=== PATIENT | male | born 1985 | race Caucasian/White ===

== ENCOUNTER 2016-12-08 09:32 | Emergency (ER) | payer OTHER ==
[~2016-12-08] VITALS: Ht 170.2 cm; Wt 73.6 kg
[~2016-12-08 09:32] MED LIST: CLOTCRE33 TOP; DIPH25CA65 PO; FLUT0.0533 TOP; LORA-741 PO; METH4PAK4 PO; OMEP40CA PO
[2016-12-08 09:35] VITALS: TEMP 37; Ht 170.2 cm; Wt 73.6 kg
[2016-12-08] MEDS ORDERED: ONDANSETRON INJ 2 MG/ML 2 ML VIAL IV STA (09:46)
[2016-12-08] MEDS ORDERED: ALBUT/IPRATROP 3MG/0.5MG NEB 3 ML VIAL INH STA (09:46)
[2016-12-08] MEDS ORDERED: SODIUM CHLORIDE 0.9% 1000ML 1,000 ML IV STA (09:46)
--- NOTE | 2016-12-08 09:53 | EMERGENCY ROOM VISIT NOTE ---
History First contact with patient: 09:39 Chief Complaint: CONGESTION Stated Complaint: HEAD, CHEST Nursing Triage Summary: head and chest congestion went through zpak and prednisone has not helped sx. last night sx worsened. non productive cough History of Present Illness The patient is a 31 year old male who presents to the Emergency Room with complaints of upper respiratory symptoms. The patient has had respiratory symptoms for the last 1 week. He has had sinus congestion, cough, chest congestion, nausea, vomiting and diarrhea. The patient states that his entire family has had similar symptoms and have all been diagnosed with influenza with a positive influenza swab. The patient saw his family doctor one week ago and was started on a Z-Bhavesh and prednisone and that has not helped his symptoms. He states he has had fevers. He states he feels tightness in his chest. He denies any abdominal pain. Review of Systems A 10 system review of systems was completed with positives and pertinent negatives listed in the HPI. Past Medical/Surgical History Medical Problems: (1) Acid reflux (2) Back surgery (3) Head injury (4) Neck surgery Social History Smoking Status: Never Smoker Alcohol Use: none Drug Use: none Marital Status: single, Housing Status: lives with family Occupation Status: employed, unemployed Current/Historical Medications Scheduled Lorazepam (Ativan), 0.5 MG PO BID Methylprednisolone (Medrol Dosepak), 1 PKT PO UD Omeprazole (Prilosec), 40 MG PO BID Ranitidine (Zantac), 150 MG PO DAILY Allergies Coded Allergies: Ketorolac Tromethamine (Unverified Allergy, Severe, anaphylaxis, 12/08/16) BEE STING (Unverified Allergy, Intermediate, SHORTNESS OF BREATH, 12/08/16) Codeine (Unverified Allergy, Unknown, 12/08/16) Latex (Unverified Allergy, Unknown, hives, bumps on hands and arms , ) Levofloxacin (Unverified Allergy, Unknown, unknown, 12/08/16) Penicillins (Unverified Allergy, Unknown, 12/08/16) Sulfa Drugs (Unverified Allergy, Unknown, 12/08/16) Physical Exam Vital Signs Date Time Temp Pulse Resp B/P Pulse Ox O2 Delivery O2 Flow Rate FiO2 12/08/16 12:01 90 18 134/66 97 12/08/16 09:35 37.0 103 18 132/78 96 Room Air Physical Exam VITALS: Vitals are noted on the nurse's note and reviewed by myself. Vital signs stable. The patient is afebrile. GENERAL: This is a 31-year-old male, in no acute distress, nondiaphoretic, well- developed well-nourished. SKIN: The skin was without rashes, erythema, edema, or bruising. There is no tenting of the skin. Capillary reflex less than 2 seconds. HEAD: Normocephalic atraumatic. EARS: External auditory canals clear, tympanic membranes pearly patel without erythema or effusion bilaterally. EYES: Pupils equal round and reactive to light and accommodation. Conjunctivae without injection, sclerae without icterus. Extraocular movements intact. NOSE: Patent, turbinates without inflammation or discharge. MOUTH: Mucous membranes moist. The posterior pharynx is erythematous. There is no exudate. Tongue does not deviate. NECK: Supple without nuchal rigidity. No lymphadenopathy. No thyromegaly. Cervical spine is nontender. No JVD. HEART: Regular rate and rhythm without murmurs gallops or rubs. LUNGS: Clear to auscultation bilaterally without wheezes, rales or rhonchi. No retractions or accessory muscle use. ABDOMEN: Positive bowel sounds x 4. Soft, nontender, without masses or organomegaly. MUSCULOSKELETAL: No muscle atrophy, erythema, or edema noted. Full range of motion in all extremities. Normal gait. Strength 5/5 throughout. NEURO: Patient was alert and oriented to person place and time. No focal neurological deficits. Medical Decision & Procedures ER Provider Diagnostic Interpretation: CHEST 2 VIEWS ROUTINE CLINICAL HISTORY: cough, fever dyspnea COMPARISON STUDY: 01/20/2016 FINDINGS: The bones soft tissues and hemidiaphragms are normal. The cardiomediastinal silhouette is normal. The lungs are clear. The pulmonary vasculature is normal. IMPRESSION: Negative chest. Laboratory Results 12/08/16 10:00 Red Blood Count 4.90, Mean Corpuscular Volume 89.8, Mean Corpuscular Hemoglobin 33.7, Mean Corpuscular Hemoglobin Concent 37.5, Mean Platelet Volume 11.4, Neutrophils (%) (Auto) 77.1, Lymphocytes (%) (Auto) 12.4, Monocytes (%) (Auto) 9.0, Eosinophils (%) (Auto) 0.6, Basophils (%) (Auto) 0.1, Neutrophils # (Auto) 7.54, Lymphocytes # (Auto) 1.21, Monocytes # (Auto) 0.88, Eosinophils # (Auto) 0.06, Basophils # (Auto) 0.01 12/08/16 10:00 Test 12/08/16 09:55 12/08/16 10:00 12/08/16 10:36 Influenza Type A Antigen Neg for Influ A (NEG) Influenza Type B Antigen Neg for Influ B (NEG) White Blood Count 9.78 K/uL (4.8-10.8) Red Blood Count 4.90 M/uL (4.7-6.1) Hemoglobin 16.5 g/dL (14.0-18.0) Hematocrit 44.0 % (42-52) Mean Corpuscular Volume 89.8 fL (80-100) Mean Corpuscular Hemoglobin 33.7 pg (25-34) Mean Corpuscular Hemoglobin Concent 37.5 g/dl (32-36) Platelet Count 151 K/uL (130-400) Mean Platelet Volume 11.4 fL (7.4-10.4) Neutrophils (%) (Auto) 77.1 % Lymphocytes (%) (Auto) 12.4 % Monocytes (%) (Auto) 9.0 % Eosinophils (%) (Auto) 0.6 % Basophils (%) (Auto) 0.1 % Neutrophils # (Auto) 7.54 K/uL (1.4-6.5) Lymphocytes # (Auto) 1.21 K/uL (1.2-3.4) Monocytes # (Auto) 0.88 K/uL (0.11-0.59) Eosinophils # (Auto) 0.06 K/uL (0-0.5) Basophils # (Auto) 0.01 K/uL (0-0.2) RDW Standard Deviation 39.3 fL (36.4-46.3) RDW Coefficient of Variation 12.2 % (11.5-14.5) Immature Granulocyte % (Auto) 0.8 % Immature Granulocyte # (Auto) 0.08 K/uL (0.00-0.02) Anion Gap 10.0 mmol/L (3-11) Est Creatinine Clear Calc Drug Dose 92.7 ml/min Estimated GFR () 104.6 Estimated GFR (Non- 90.2 BUN/Creatinine Ratio 8.1 (10-20) Calcium Level 8.4 mg/dl (8.5-10.1) Total Bilirubin 0.7 mg/dl (0.2-1) Aspartate Amino Transf (AST/SGOT) 9 U/L (15-37) Alanine Aminotransferase (ALT/SGPT) 24 U/L (12-78) Alkaline Phosphatase 57 U/L (45-117) Total Protein 6.6 gm/dl (6.4-8.2) Albumin 3.8 gm/dl (3.4-5.0) Globulin 2.8 gm/dl (2.5-4.0) Albumin/Globulin Ratio 1.4 (0.9-2) Lipase 104 U/L (73-393) Urine Color YELLOW Urine Appearance CLEAR (CLEAR) Urine pH 7.0 (4.5-7.5) Urine Specific [place] 1.003 (1.000-1.030) Urine Protein NEG (NEG) Urine Glucose (UA) NEG (NEG) Urine Ketones NEG (NEG) Urine Occult Blood NEG (NEG) Urine Nitrite NEG (NEG) Urine Bilirubin NEG (NEG) Urine Urobilinogen NEG (NEG) Urine Leukocyte Esterase NEG (NEG) Medications Administered Medications (Trade) Dose Ordered Sig/Luis Route Start Time Stop Time Status Last Admin Dose Admin Albuterol/ Ipratropium 3 ml 3 ml NOW STAT INH 12/08/16 09:46 12/08/16 09:48 DC 12/08/16 10:01 3 ML Sodium Chloride (Nss 1000ml) 1,000 ml @ 999 mls/hr Q1H1M STAT IV 12/08/16 09:46 12/08/16 10:46 DC 12/08/16 10:01 999 MLS/HR Albuterol (Ventolin Hfa Inhaler) 2 puffs Q4R STAT INH 12/08/16 11:40 12/08/16 11:41 DC 12/08/16 11:57 2 PUFFS ED Course The patient was seen and examined. Previous visits were reviewed. The patient is afebrile. He does not have a leukocytosis. He does not have any significant electrolyte abnormality. Chest x-ray was negative for infiltrate Influenza was negative The patient was given a DuoNeb. He did feel slightly jittery after the treatment but that completely resolved He was hydrated with normal saline He was given albuterol inhaler prior to discharge The patient presents with upper respiratory symptoms. His symptoms are certainly characteristic of influenza. Additionally, his entire family has tested positive for influenza. Although the rapid influenza test is negative it may represent a false negative. There is no evidence for infiltrate. The patient has already been on Zithromax which has not improved his symptoms making this even more likely to be viral in nature. The patient does not have any shortness of breath and no pain with deep inspiration. The patient does have a history of reflux and has had a sensation in his throat of irritation but no pain with swallowing. The prednisone may be causing some GI upset. The patient should try Zantac in addition to his Prilosec. He is also given a prescription for Medrol Dosepak. He was given an albuterol inhaler to use at home as needed. He should return to the ER with any worsening symptoms. Otherwise, he should follow-up with his family doctor at the end of the week. The case was discussed with Dr. Ledbetter who agrees with the assessment and treatment planer Medical Decision DIFFERENTIAL DIAGNOSIS: Aortic dissection, myocarditis, pericarditis, cervical disc disease, costochondritis, herpes zoster, rib fracture, pleuritis, pneumonia , pulmonary embolus, tension pneumothorax, anxiety disorder, somatoform disorder , choledocholithiasis, status, esophagitis, esophageal spasm, esophageal reflux , esophageal rupture, pancreatitis, peptic ulcer disease, cardiac ischemia, ST elevation [place], acute coronary syndrome, arrhythmia, coronary artery vasospasm. vavular heart disease, coronary artery disease, among others. Impression Primary Impression: Viral upper respiratory illness Additional Impression: Influenza-like illness Departure Information Dispostion Home / Self-Care Condition GOOD Prescriptions Ranitidine (Zantac) 150 Mg Tab 150 MG PO DAILY for 10 Days, #10 TAB Prov: Tanesha Garcia PA-C 12/08/16 Methylprednisolone (MEDROL DOSEPAK) 4 Mg Bhavesh 1 PKT PO UD, #1 PKT Prov: Tanesha Garcia PA-C 12/08/16 Referrals Vicente Tanner M.D. (PCP) Patient Instructions ED Bronchitis Viral, [facility] Additional Instructions Albuterol inhaler 1-2 puffs every 4-6 hours as needed for congestion Medrol Dosepak as prescribed Zantac as prescribed in addition to the Prilosec Return to the ER with any shortness of breath, pain with deep inspiration, generalized worsening symptoms Otherwise, follow up with your family doctor next week Work Instructions Return To Work: 2 days Problem Qualifiers
[2016-12-08 10:15] LABS: BASO % 0.1 %; BASO ABS # 0.01 K/uL (0-0.2); COMPLETE YES; EOS % 0.6 %; IG% 0.8 %; LYMPH % 12.4 %; LYMPH ABS # 1.21 K/uL (1.2-3.4); MEAN CELL VOLUME 89.8 fL (80-100); MEAN CORPUSCULAR HEMOGLOBIN 33.7 pg (25-34); MEAN CORPUSCULAR HGB CONC 37.5 g/dl (32-36); MEAN PLATELET VOLUME 11.4 fL (7.4-10.4); NEUT % 77.1 %; PLATELET COUNT 151 K/uL (130-400); WHITE BLOOD COUNT 9.78 K/uL (4.8-10.8)
--- NOTE | 2016-12-08 10:32 | DIAGNOSTIC IMAGING REPORT ---
CHEST 2 VIEWS ROUTINE CLINICAL HISTORY: cough, fever dyspnea COMPARISON STUDY: 01/20/2016 FINDINGS: The bones soft tissues and hemidiaphragms are normal. The cardiomediastinal silhouette is normal. The lungs are clear. The pulmonary vasculature is normal. IMPRESSION: Negative chest. Electronically signed by: Medhat Khan M.D. 12/08/2016 10:30 AM Dictated Date/Time: 12/08/2016 10:30 AM
[2016-12-08 10:33] LABS: BUN/CREATININE RATIO 8.1 (10-20); CALCIUM 8.4 mg/dl (8.5-10.1); CREATININE 1.1 mg/dl (0.60-1.40); POTASSIUM 3.1 mmol/L (3.5-5.1)
[2016-12-08 10:36] LABS: ALB/GLOB RATIO 1.4 (0.9-2)
[2016-12-08 10:53] LABS: URINE APPEARANCE CLEAR (CLEAR); URINE BILIRUBIN NEG (NEG); URINE COLOR YELLOW; URINE NITRITE NEG (NEG); URINE SPECIFIC GRAVITY 1.003 (1.000-1.030); UROBILINOGEN NEG (NEG); ZZUR CULT IF INDIC CLEAN CATCH NO
[2016-12-08 10:56] LABS: MANUAL MICROSCOPIC REQUIRED? NO; REVIEW REQ? NO
[2016-12-08] MEDS ORDERED: ALBUTEROL HFA 8 GM INHALER INH STA (11:40)
[2016-12-08] MEDS ORDERED: METH4PAK PO (11:42)
[2016-12-08] MEDS ORDERED: ZNTT/150 PO (11:42)
[2016-12-08 12:01] VITALS: BP 134/66; PULSE 90; O2SAT 97
[2017-06-02] MEDS ORDERED: OMEP40CA41 PO (09:48)
[2017-06-09] MEDS ORDERED: OXYC-57 PO (18:17)
== END 2016-12-08 12:00 | disposition home or self-care (01) ==
LOC: C.EDB 09:33
DX: J06.9 Acute upper respiratory infection, unspecified (principal)

== ENCOUNTER 2016-12-18 09:50 | Emergency (ER) | payer OTHER ==
[~2016-12-18] VITALS: Ht 172.7 cm; Wt 73.3 kg
[~2016-12-18 09:50] MED LIST changes: -CLOTCRE33 TOP; -DIPH25CA65 PO; -FLUT0.0533 TOP; +METH4PAK PO; -METH4PAK4 PO; -OMEP40CA PO; +ZNTT/150 PO
[2016-12-18 09:53] VITALS: Ht 172.7 cm; Wt 73.3 kg
--- NOTE | 2016-12-18 10:40 | DIAGNOSTIC IMAGING REPORT ---
TWO VIEW CHEST CLINICAL HISTORY: Cough. FINDINGS: PA and lateral chest radiographs are compared to study dated 12/08/2016. The cardiomediastinal silhouette is unremarkable. The lungs appear hyperinflated, likely due to good inspiratory result. The lungs and pleural spaces are clear. There is no pneumothorax. The bony thorax appears intact. IMPRESSION: No active disease in the chest. Electronically signed by: Tee Shine M.D. 12/18/2016 10:39 AM Dictated Date/Time: 12/18/2016 10:39 AM
--- NOTE | 2016-12-18 11:03 | EMERGENCY ROOM VISIT NOTE ---
History Report prepared by Patricia: Glen Fishman Under the Supervision of: Dr. Laura Berumen M.D. First contact with patient: 10:20 Chief Complaint: RESPIRATORY PROBLEMS Stated Complaint: TROUBLE BREATHING Nursing Triage Summary: Pt states hurts to breathe, b/l rib pain, prod cough of yellow now clear with a small amt of blood. History of Present Illness The patient is a 31 year old male who presents to the Emergency Room with complaints of severe and persistent cough starting about 3 weeks ago. The patient also complains of intermittent bloody nose, blood in cough, and bilateral lower chest pain. He has worsening symptoms with lying down. He was recently diagnosed with bronchitis and flu. He has taken prednisone and used an inhaler without relief. The patient denies nausea, vomiting, abdominal pain, or any other complaints. Source of History: patient Onset: about 3 weeks ago Position: other (global) Symptom Intensity: severe Quality: other (cough) Timing: other (persistent) Modifying Factors (Relieving): other (Prednisone and inahler without relief) Associated Symptoms: + chest pain, No abdominal pain, No nausea, No vomiting Review of Systems See HPI for pertinent positives & negatives. A total of 10 systems reviewed and were otherwise negative. Past Medical & Surgical Medical Problems: (1) Acid reflux (2) Back surgery (3) Head injury (4) Neck surgery Family History FH: heart disease Social History Smoking Status: Never Smoker Alcohol Use: none Drug Use: none Marital Status: single, Housing Status: lives with family Occupation Status: employed, unemployed Current/Historical Medications Scheduled Lorazepam (Ativan), 0.5 MG PO BID Omeprazole (Prilosec), 40 MG PO BID Allergies Coded Allergies: Ketorolac Tromethamine (Unverified Allergy, Severe, anaphylaxis, 12/18/16) BEE STING (Unverified Allergy, Intermediate, SHORTNESS OF BREATH, 12/18/16) Codeine (Unverified Allergy, Unknown, 12/18/16) Latex (Unverified Allergy, Unknown, hives, bumps on hands and arms , ) Levofloxacin (Unverified Allergy, Unknown, unknown, 12/18/16) Penicillins (Unverified Allergy, Unknown, 12/18/16) Sulfa Drugs (Unverified Allergy, Unknown, 12/18/16) Physical Exam Vital Signs Date Time Temp Pulse Resp B/P Pulse Ox O2 Delivery O2 Flow Rate FiO2 12/18/16 12:54 36.9 90 18 127/70 96 12/18/16 10:50 90 18 127/70 96 Room Air 12/18/16 09:55 97 Room Air 12/18/16 09:53 36.9 90 18 142/90 98 Room Air Physical Exam CONSTITUTIONAL: Mild painful distress with deep breaths. HEENT: No icterus, moist mucous membranes NECK: No meningismus, trachea is midline. CARDIOVASCULAR: Regular rate, normal perfusion RESPIRATORY: Unlabored breathing. Clear to auscultation. GASTROINTESTINAL: Non-tender GENITOURINARY: No flank tenderness MUSCULOSKELETAL: Full range of motion NEUROLOGIC: No acute gross focal deficits. PSYCHIATRIC: Normal affect SKIN: Normal for ethnicity. Medical Decision & Procedures ER Provider Diagnostic Interpretation: X-ray results as stated below per interpretation by me and the radiologist. TWO VIEW CHEST CLINICAL HISTORY: Cough. FINDINGS: PA and lateral chest radiographs are compared to study dated 12/08/2016. The cardiomediastinal silhouette is unremarkable. The lungs appear hyperinflated, likely due to good inspiratory result. The lungs and pleural spaces are clear. There is no pneumothorax. The bony thorax appears intact. IMPRESSION: No active disease in the chest. Electronically signed by: Tee Shine M.D. 12/18/2016 10:39 AM Dictated Date/Time: 12/18/2016 10:39 AM ED Course 1020: Past medical records reviewed. The patient was evaluated in room A12B. A complete history and physical examination was performed. 1243: Upon reexamination the patient is resting comfortably. I discussed results and treatment plan with the patient. He verbalizes agreement and understanding. The patient is ready for discharge. Medical Decision Differential diagnosis includes but is not limited to bronchitis and pneumonia 31-year-old presented to the emergency department for evaluation of roughly 3 weeks of cough. He already has had an outpatient evaluation included x-rays which were negative. He notes he has bilateral pleuritic pain which she treats to coughing and is likely the etiology given the history. She declined both Tylenol and Motrin states she does not take medications for pain. He was encouraged to take both of these [id number] analgesics, however. Patient did wait patiently for several hours during a busy day in the emergency room. He requested work note which was provided. After discharge he requested the work note specify he cannot work outside. I declined to provide this note I did not have time to extremely my decision making given the context of the ER. Patient left frustrated and felt as if the cold weather would expose him to the risk of bacterial infection. Impression Primary Impression: Bronchitis Scribe Attestation The scribe's documentation has been prepared under my direction and personally reviewed by me in its entirety. I confirm that the note above accurately reflects all work, treatment, procedures, and medical decision making performed by me. Departure Information Dispostion Home / Self-Care Referrals No Doctor, Assigned (PCP) Forms HOME CARE DOCUMENTATION FORM, IMPORTANT VISIT INFORMATION, WORK / SCHOOL INSTRUCTIONS Patient Instructions Chest Pain - [facility], [facility]
[2016-12-18 12:54] VITALS: BP 127/70; PULSE 90; TEMP 36.9; O2SAT 96
[2017-06-02] MEDS ORDERED: OMEP40CA41 PO (09:48)
[2017-06-09] MEDS ORDERED: OXYC-57 PO (18:17)
== END 2016-12-18 12:56 | disposition home or self-care (01) ==
LOC: C.EDB 09:51 → C.EDA 12:56
DX: J40 Bronchitis, not specified as acute or chronic (principal); K21.9 Gastro-esophageal reflux disease without esophagitis; Z82.49 Family history of ischemic heart disease and other diseases of the circulatory system

== ENCOUNTER → 2017-02-25 | Outpatient (CLI) | payer OTHER ==
[~2017-02-25] MED LIST changes: +ATV5X PO; -METH4PAK PO; +OMEP40CA41 PO; +ONDA4TAB10 SL; +OXYC-57 PO; +OXYC1TAB3 PO; +TAMS0.4C38 PO; -ZNTT/150 PO
[2017-02-25 15:54] LABS: BASO % 0.2 %; BASO ABS # 0.01 K/uL (0-0.2); COMPLETE YES; EOS % 0.6 %; HEMATOCRIT 45.7 % (42-52); IG% 0.5 %; LYMPH % 14.9 %; LYMPH ABS # 0.95 K/uL (1.2-3.4); MEAN CORPUSCULAR HEMOGLOBIN 32.7 pg (25-34); MEAN CORPUSCULAR HGB CONC 35.9 g/dl (32-36); MEAN PLATELET VOLUME 11.6 fL (7.4-10.4); MONO % 6.9 %; NEUT % 76.9 %; PLATELET COUNT 181 K/uL (130-400); RED BLOOD COUNT 5.02 M/uL (4.7-6.1); WHITE BLOOD COUNT 6.37 K/uL (4.8-10.8)
[2017-02-25 16:35] LABS: ALT/SGPT 22 U/L (12-78); AST/SGOT 13 U/L (15-37); BLOOD UREA NITROGEN 15 mg/dl (7-18); BUN/CREATININE RATIO 13.2 (10-20); CARBON DIOXIDE 29 mmol/L (21-32); CHLORIDE 105 mmol/L (98-107); GLUCOSE 91 mg/dl (70-99); POTASSIUM 3.5 mmol/L (3.5-5.1); SODIUM 142 mmol/L (136-145)
[2017-02-25 16:41] LABS: CALCIUM 9.1 mg/dl (8.5-10.1)
[2017-02-25 17:08] LABS: ALB/GLOB RATIO 1.5 (0.9-2); ALKALINE PHOSPHATASE 52 U/L (45-117)
== END | disposition home or self-care (01) ==
LOC: C.LAB1850 15:00
PROVIDERS: ATTEND Internal Medicine Pulmonary Disease
DX: J30.9 Allergic rhinitis, unspecified (principal); L23.9 Allergic contact dermatitis, unspecified cause

== ENCOUNTER 2017-06-02 18:20 | Emergency (ER) | payer OTHER ==
[~2017-06-02] VITALS: Ht 170.2 cm; Wt 73.3 kg
[~2017-06-02 18:20] MED LIST changes: -ATV5X PO; -ONDA4TAB10 SL; -OXYC-57 PO; -OXYC1TAB3 PO; -TAMS0.4C38 PO
[2017-06-02 18:25] VITALS: TEMP 36.9; Ht 170.2 cm; Wt 73.3 kg
[2017-06-02] MEDS ORDERED: SODIUM CHLORIDE 0.9% 1000ML 1,000 ML IV STA (18:42)
--- NOTE | 2017-06-02 18:48 | EMERGENCY ROOM VISIT NOTE ---
History First contact with patient: 18:31 Chief Complaint: DIZZY Stated Complaint: DIZZY, FELL OUT DURING WORK History of Present Illness The patient is a 31 year old male who presents to the Emergency Room via private vehicle accompanied by father with complaints of "dizziness, almost passed out during work". The patient states that for the past 2 days, he has felt tired. He states that today he tried mowing the yard, and on his way to work felt very dizzy and as if he was going to pass out. He also notes pain in his bilateral knees, and low back as well as right shoulder for the past 2 weeks. He notes recent tick bites. He is also had generalized abdominal pain for the past 10 days but denies pain currently. He has had associated diarrhea. He notes that were he works, is very warm is concerned he may be dehydrated today. There was associated shortness of breath, of which has dissipated. He denies any chest pain. He denies any fevers or chills. He has discontinued Zyrtec, which he has been taking regularly as he has felt tired. Review of Systems A complete 10-point Review of Systems was discussed with the patient, with pertinent positives and negatives listed in the History of Present Illness. All remaining Review of Systems questions can be considered negative unless otherwise specified. Past Medical/Surgical History Medical Problems: (1) Acid reflux (2) Back surgery (3) Head injury (4) Neck surgery Family History FH: heart disease Social History Smoking Status: Never Smoker Alcohol Use: none Drug Use: none Marital Status: single, Housing Status: lives with family Occupation Status: employed, unemployed Current/Historical Medications Scheduled Lorazepam (Lorazepam), 0.5 MG PO BID Omeprazole (Prilosec), 40 MG PO BID Allergies Coded Allergies: Ketorolac Tromethamine (Unverified Allergy, Severe, anaphylaxis, 12/18/16) BEE STING (Unverified Allergy, Intermediate, SHORTNESS OF BREATH, 12/18/16) Codeine (Unverified Allergy, Unknown, 12/18/16) Latex (Unverified Allergy, Unknown, hives, bumps on hands and arms , ) Levofloxacin (Unverified Allergy, Unknown, unknown, 12/18/16) Penicillins (Unverified Allergy, Unknown, 12/18/16) Sulfa Drugs (Unverified Allergy, Unknown, 12/18/16) Physical Exam Vital Signs Date Time Temp Pulse Resp B/P (MAP) Pulse Ox O2 Delivery O2 Flow Rate FiO2 06/02/17 21:01 78 18 126/73 98 06/02/17 20:50 78 18 126/73 98 Room Air 06/02/17 19:23 86 06/02/17 19:13 70 124/81 72 136/82 82 126/81 06/02/17 19:11 Room Air 06/02/17 18:25 36.9 98 18 153/80 99 Room Air Physical Exam VITAL SIGNS - Vital signs and nursing notes were reviewed. Afebrile, hypertensive at 153/80, non-tachycardic and is saturating well on room air 99%. GENERAL -31-year-old male appearing his stated age who is in no acute distress. Communicates well with provider and answers questions appropriately. SKIN - faint bilateral anterior foot rash which is chronic. HEAD - NC/AT. EYES - PERRL with EOMI bilaterally. Sclera anicteric. Palpebral conjunctiva pink and moist with no injection noted. EARS - No deformities of external structures noted on gross examination bilaterally. No pain elicited with palpation of the tragus bilaterally. External auditory canals without discharge or otorrhea. Tympanic membranes pearly patel without retraction or bulging. No fluid or purulent material visualized behind the TM. Handle of malleus, umbo, cone of light, pars tensa/ flaccid all easily visualized. NOSE - Midline and without cyanosis. No epistaxis or purulent drainage noted. Septum midline without deviation or septal hematoma noted. MOUTH/OROPHARYNX - Without perioral cyanosis. Buccal mucosa pink and moist and without leukoplakia. Tongue midline with equal elevation of palate bilaterally. No tonsillar hypertrophy, erythema, or exudates noted. [] dentition noted. NECK - Neck with FROM. Supple to palpation. No lymphadenopathy noted. No nuchal rigidity. LUNGS - Chest wall symmetric without accessory muscle use, intercostals retractions, or central cyanosis. Normal vesicular breath sounds CTA B/L. No wheezes, rales, or rhonchi appreciated. CARDIAC - RRR with S1/S2. No murmur, rubs, or gallops appreciated. ABDOMEN - Abdominal contour without pulsations or visible masses. BS normoactive all four quadrants. No tenderness, palpable masses, hepatosplenomegaly, or ascites noted. EXTREMITIES - No clubbing or peripheral cyanosis. No pretibial edema present. +5 /5 strength noted in UE/LE bilaterally. NEUROLOGIC - Cranial nerves II through XII grossly intact. Sensory intact to light touch throughout. PSYCH - A&Ox3 and cooperates fully with examiner. Pt is very pleasant and interacts well with examiner. Medical Decision & Procedures ER Provider Diagnostic Interpretation: CHEST ONE VIEW PORTABLE CLINICAL HISTORY: 31 years-old Male presenting with dizziness, weakness. TECHNIQUE: Portable upright AP view of the chest was obtained. COMPARISON: 12/18/2016. FINDINGS: Cardiomediastinal silhouette normal. Lungs and pleural spaces clear. Osseous structures and upper abdomen normal. IMPRESSION: 1. No acute cardiopulmonary disease. Electronically signed by: Vicente Perkins M.D. 06/02/2017 7:16 PM Dictated Date/Time: 06/02/2017 7:16 PM Laboratory Results 06/02/17 19:00 Red Blood Count 5.11, Mean Corpuscular Volume 89.0, Mean Corpuscular Hemoglobin 33.5, Mean Corpuscular Hemoglobin Concent 37.6, Mean Platelet Volume 11.7, Neutrophils (%) (Auto) 73.9, Lymphocytes (%) (Auto) 17.2, Monocytes (%) (Auto) 6.7, Eosinophils (%) (Auto) 1.7, Basophils (%) (Auto) 0.3, Neutrophils # (Auto) 4.85, Lymphocytes # (Auto) 1.13, Monocytes # (Auto) 0.44, Eosinophils # (Auto) 0.11, Basophils # (Auto) 0.02 06/02/17 19:00 Test 06/02/17 19:00 06/02/17 19:10 06/02/17 19:23 White Blood Count 6.56 K/uL (4.8-10.8) Red Blood Count 5.11 M/uL (4.7-6.1) Hemoglobin 17.1 g/dL (14.0-18.0) Hematocrit 45.5 % (42-52) Mean Corpuscular Volume 89.0 fL (80-100) Mean Corpuscular Hemoglobin 33.5 pg (25-34) Mean Corpuscular Hemoglobin Concent 37.6 g/dl (32-36) Platelet Count 175 K/uL (130-400) Mean Platelet Volume 11.7 fL (7.4-10.4) Neutrophils (%) (Auto) 73.9 % Lymphocytes (%) (Auto) 17.2 % Monocytes (%) (Auto) 6.7 % Eosinophils (%) (Auto) 1.7 % Basophils (%) (Auto) 0.3 % Neutrophils # (Auto) 4.85 K/uL (1.4-6.5) Lymphocytes # (Auto) 1.13 K/uL (1.2-3.4) Monocytes # (Auto) 0.44 K/uL (0.11-0.59) Eosinophils # (Auto) 0.11 K/uL (0-0.5) Basophils # (Auto) 0.02 K/uL (0-0.2) RDW Standard Deviation 39.3 fL (36.4-46.3) RDW Coefficient of Variation 12.1 % (11.5-14.5) Immature Granulocyte % (Auto) 0.2 % Immature Granulocyte # (Auto) 0.01 K/uL (0.00-0.02) Prothrombin Time 11.5 SECONDS (9.0-12.0) Prothromb Time International Ratio 1.1 (0.9-1.1) Activated Partial Thromboplast Time 30.3 SECONDS (21.0-31.0) Partial Thromboplastin Ratio 1.2 Anion Gap 5.0 mmol/L (3-11) Est Creatinine Clear Calc Drug Dose 92.7 ml/min Estimated GFR () 104.6 Estimated GFR (Non- 90.2 BUN/Creatinine Ratio 12.1 (10-20) Calcium Level 8.8 mg/dl (8.5-10.1) Magnesium Level 2.2 mg/dl (1.8-2.4) Total Bilirubin 0.6 mg/dl (0.2-1) Aspartate Amino Transf (AST/SGOT) 16 U/L (15-37) Alanine Aminotransferase (ALT/SGPT) 22 U/L (12-78) Alkaline Phosphatase 62 U/L (45-117) Total Protein 7.4 gm/dl (6.4-8.2) Albumin 4.2 gm/dl (3.4-5.0) Globulin 3.2 gm/dl (2.5-4.0) Albumin/Globulin Ratio 1.3 (0.9-2) Thyroid Stimulating Hormone (TSH) 1.180 uIu/ml (0.300-4.500) Lyme Disease IgG Antibody NEG (NEG) Lyme Disease IgM Antibody NEG (NEG) Bedside Troponin I < 0.030 ng/ml (0-0.045) Urine Color YELLOW Urine Appearance CLEAR (CLEAR) Urine pH 7.5 (4.5-7.5) Urine Specific Mcdonald 1.011 (1.000-1.030) Urine Protein NEG (NEG) Urine Glucose (UA) NEG (NEG) Urine Ketones NEG (NEG) Urine Occult Blood NEG (NEG) Urine Nitrite NEG (NEG) Urine Bilirubin NEG (NEG) Urine Urobilinogen NEG (NEG) Urine Leukocyte Esterase NEG (NEG) Medications Administered Medications (Trade) Dose Ordered Sig/Luis Route Start Time Stop Time Status Last Admin Dose Admin Sodium Chloride 1,000 ml @ 999 mls/hr Q1H1M STAT IV 06/02/17 18:42 06/02/17 19:42 DC 06/02/17 19:16 999 MLS/HR Medical Decision Patient was seen and evaluated as above. After obtaining a thorough history and physical examination IV access was initiated and the above workup was performed. Patient had a bedside EKG that revealed normal sinus rhythm with sinus arrhythmia, rate of 80 bpm. No ectopy or ischemic change. Patient appears otherwise healthy. I suspect he is experiencing dizziness secondary to dehydration. He was given 1 L of fluid, reevaluated and was feeling better. Orthostatics are nondiagnostic. CBC reveals no leukocytosis or anemia. Coag studies unremarkable. CMP reveals chloride high at 109, glucose high at 112. This is a nonfasting specimen. Troponin negative. TSH unremarkable. No evidence of kidney or liver failure. Creatinine is stable. Urine is unremarkable. Lyme test negative. Chest x-ray remarkable. I suspect the patient was likely dehydrated. At this time he appears stable for outpatient management. I do not suspect any emergent process at this time. Patient was educated upon worrisome symptoms which to return, had questions answered prior to discharge, and was discharged home in good condition. In evaluation treatment this patient following differential diagnoses were entertained: Dehydration, MO, Lyme disease, among others. Impression Primary Impression: Dizziness Additional Impressions: Joint pain Back pain Departure Information Dispostion Home / Self-Care Condition GOOD Referrals No Doctor, Assigned (PCP) Patient Instructions My [facility] Additional Instructions You have been treated in the Emergency Department your dizziness and joint pain. Laboratory results and imaging studies have ruled out any emergent causes for your symptoms which would warrant admission or surgery. For pain control, you can use the following [id number] medicines, if not allergic: - Regular strength (325mg/tab) Tylenol (acetaminophen) 2 tabs every 4-6 hours as needed. Do not exceed 12 tablets in a 24 hour period. Avoid taking more than 3 grams (3000 mg) of Tylenol per day. This includes any other sources of acetaminophen you may take on a regular basis. - Regular strength (200 mg/tab) Advil (ibuprofen) 1-2 tabs every 4-6 hours as needed. Do not exceed a dose of 3200 mg per day. Drink plenty of water and stay well hydrated. As with any trip to the Emergency Department, you should follow-up with your Primary Care Provider from today's visit. Return to the emergency department if your symptoms persist despite treatment plan outlined above or if the following symptoms occur: increased fevers, chills , worsening nausea/vomiting, blood in your stool or urine. Please return to the emergency department with any new/concerning symptoms. Problem Qualifiers
[2017-06-02] MEDS ORDERED: ATV5X PO (19:02)
[2017-06-02 19:15] LABS: BASO % 0.3 %; BASO ABS # 0.02 K/uL (0-0.2); COMPLETE YES; EOS % 1.7 %; HEMATOCRIT 45.5 % (42-52); IG% 0.2 %; LYMPH % 17.2 %; LYMPH ABS # 1.13 K/uL (1.2-3.4); MEAN CORPUSCULAR HEMOGLOBIN 33.5 pg (25-34); MEAN CORPUSCULAR HGB CONC 37.6 g/dl (32-36); MEAN PLATELET VOLUME 11.7 fL (7.4-10.4); MONO % 6.7 %; NEUT % 73.9 %; PLATELET COUNT 175 K/uL (130-400); RED BLOOD COUNT 5.11 M/uL (4.7-6.1); WHITE BLOOD COUNT 6.56 K/uL (4.8-10.8)
--- NOTE | 2017-06-02 19:18 | DIAGNOSTIC IMAGING REPORT ---
CHEST ONE VIEW PORTABLE CLINICAL HISTORY: 31 years-old Male presenting with dizziness, weakness. TECHNIQUE: Portable upright AP view of the chest was obtained. COMPARISON: 12/18/2016. FINDINGS: Cardiomediastinal silhouette normal. Lungs and pleural spaces clear. Osseous structures and upper abdomen normal. IMPRESSION: 1. No acute cardiopulmonary disease. Electronically signed by: Vicente Perkins M.D. 06/02/2017 7:16 PM Dictated Date/Time: 06/02/2017 7:16 PM
[2017-06-02 19:31] LABS: BUN/CREATININE RATIO 12.1 (10-20); CALCIUM 8.8 mg/dl (8.5-10.1); CREATININE 1.1 mg/dl (0.60-1.40); INR 1.1 (0.9-1.1); MAGNESIUM 2.2 mg/dl (1.8-2.4); PARTIAL THROMBOPLASTIN RATIO 1.2; POTASSIUM 3.5 mmol/L (3.5-5.1); PROTHROMBIN TIME (PATIENT) 11.5 SECONDS (9.0-12.0)
[2017-06-02 19:42] LABS: URINE APPEARANCE CLEAR (CLEAR); URINE BILIRUBIN NEG (NEG); URINE COLOR YELLOW; URINE NITRITE NEG (NEG); URINE PH 7.5 (4.5-7.5); URINE SPECIFIC GRAVITY 1.011 (1.000-1.030); UROBILINOGEN NEG (NEG); ZZUR CULT IF INDIC CLEAN CATCH NO
[2017-06-02 19:42] LABS: ALB/GLOB RATIO 1.3 (0.9-2); THYROID STIMULATING HORMONE 1.18 uIu/ml (0.300-4.500)
[2017-06-02 19:45] LABS: MANUAL MICROSCOPIC REQUIRED? NO; REVIEW REQ? NO
[2017-06-02 20:27] LABS: LYME DISEASE AB IGG NEG (NEG); LYME DISEASE AB IGM NEG (NEG)
[2017-06-02 21:01] VITALS: BP 126/73; PULSE 78; O2SAT 98
[2017-06-09] MEDS ORDERED: OXYC-57 PO (18:17)
== END 2017-06-02 21:02 | disposition home or self-care (01) ==
LOC: C.EDB 18:23 → C.EDA 21:02
DX: R42 Dizziness and giddiness (principal); M25.50 Pain in unspecified joint; M54.9 Dorsalgia, unspecified; K21.9 Gastro-esophageal reflux disease without esophagitis; Z98.890 Other specified postprocedural states; Z79.899 Other long term (current) drug therapy; Z88.0 Allergy status to penicillin; Z88.2 Allergy status to sulfonamides; Z88.5 Allergy status to narcotic agent; Z88.8 Allergy status to other drugs, medicaments and biological substances; Z91.040 Latex allergy status; Z91.030 Bee allergy status; Z82.49 Family history of ischemic heart disease and other diseases of the circulatory system

== ENCOUNTER 2017-06-06 13:10 | Emergency (ER) | payer OTHER ==
[~2017-06-06] VITALS: Ht 170.2 cm; Wt 74.4 kg
[~2017-06-06 13:10] MED LIST changes: +ATV5X PO; -LORA-741 PO
[2017-06-06 13:15] VITALS: Ht 170.2 cm; Wt 74.4 kg
[2017-06-06] MEDS ORDERED: SODIUM CHLORIDE 0.9% 1000ML 1,000 ML IV STA ×2 (13:31)
[2017-06-06 13:58] LABS: COMPLETE YES; EOS % 1.7 %; HEMATOCRIT 48.1 % (42-52); IG% 0.2 %; LYMPH % 21.4 %; LYMPH ABS # 1.12 K/uL (1.2-3.4); MEAN CELL VOLUME 89.1 fL (80-100); MEAN CORPUSCULAR HEMOGLOBIN 32.4 pg (25-34); MEAN CORPUSCULAR HGB CONC 36.4 g/dl (32-36); MEAN PLATELET VOLUME 11.5 fL (7.4-10.4); MONO % 6.3 %; NEUT % 70.4 %; PLATELET COUNT 195 K/uL (130-400); WHITE BLOOD COUNT 5.24 K/uL (4.8-10.8)
--- NOTE | 2017-06-06 14:04 | DIAGNOSTIC IMAGING REPORT ---
GALLBLADDER-ABD LIMITED CLINICAL HISTORY: rug abd pain pain. Nausea. TECHNIQUE: Ultrasound COMPARISON STUDY: None FINDINGS: Trace gallbladder sludge. No shadowing gallstones. Normal gallbladder wall at 2 mm. Common bile duct 3 mm. Liver and pancreas are uniform. Right kidney is negative for hydronephrosis. IMPRESSION: Trace gallbladder sludge. Normal caliber bile ducts. Otherwise normal study. The above report was generated using voice recognition software. It may contain grammatical, syntax or spelling errors. Electronically signed by: Medhat Khan M.D. 06/06/2017 2:03 PM Dictated Date/Time: 06/06/2017 2:02 PM
[2017-06-06 14:08] LABS: URINE APPEARANCE CLEAR (CLEAR); URINE BILIRUBIN NEG (NEG); URINE COLOR YELLOW; URINE NITRITE NEG (NEG); URINE PH 7.5 (4.5-7.5); URINE SPECIFIC GRAVITY 1.013 (1.000-1.030); UROBILINOGEN NEG (NEG); ZZUR CULT IF INDIC CLEAN CATCH NO
[2017-06-06 14:10] LABS: MANUAL MICROSCOPIC REQUIRED? NO; REVIEW REQ? NO
[2017-06-06 14:20] LABS: BUN/CREATININE RATIO 10.5 (10-20); CALCIUM 9.2 mg/dl (8.5-10.1); CREATININE 1.2 mg/dl (0.60-1.40); POTASSIUM 3.6 mmol/L (3.5-5.1)
--- NOTE | 2017-06-06 15:27 | DIAGNOSTIC IMAGING REPORT ---
ABD/PELVIS IV CONTRAST ONLY CT DOSE: 271.94 mGy.cm HISTORY: Flank pain Right sided abd pain. US neg. TECHNIQUE: Multiaxial CT images of the abdomen and pelvis were performed following the use of intravenous contrast. A dose lowering technique was utilized adhering to the principles of ALARA. COMPARISON STUDY: None. FINDINGS: Lung bases are clear. Liver spleen and pancreas appear uniform. Kidneys enhance uniformly. The upper abdominal bowel pattern is unremarkable. The appendix is normal. Within the lower small bowel on the left as well as right flank are areas of somewhat edematous fluid-filled change. This is suggestive of a small bowel enteritis. Terminal ileum is specifically is unremarkable. IMPRESSION: 1. Findings suggesting a nonspecific small bowel enteritis. 2. Normal appendix. 3. Nonobstructive bowel pattern. The above report was generated using voice recognition software. It may contain grammatical, syntax or spelling errors. Electronically signed by: Medhat Khan M.D. 06/06/2017 3:26 PM Dictated Date/Time: 06/06/2017 3:17 PM
[2017-06-06] MEDS ORDERED: OPTIRAY 320 IV PRN (15:30)
[2017-06-06] MEDS ORDERED: ONDA4TAB10 SL (16:09)
[2017-06-06] MEDS ORDERED: ONDANSETRON HOME PACK 4MG OD TAB PO ONE (16:15)
[2017-06-06 16:22] VITALS: BP 135/76; PULSE 70; TEMP 36.7; O2SAT 99
--- NOTE | 2017-06-06 20:41 | EMERGENCY ROOM VISIT NOTE ---
History Report prepared by Darrelibsatnam: Layne Ramires Under the Supervision of: Dr. Jerad Avitia M.D. First contact with patient: 13:25 Chief Complaint: ABDOMINAL PAIN Stated Complaint: ABD. PAIN Nursing Triage Summary: Patient states he has sharp pain right lower quadrant to side that started 7 to 10 days ago. Diarrhea, if he eats, especially something greasy he gets nauseous in addition to the pain. Concerned it is his gallbladder. Hx of acid reflux. History of Present Illness The patient is a 31 year old male who presents to the Emergency Room with complaints of intermittent right sided abdominal pain for the past 7 to 10 days. He rates his discomfort as an 8/10 and describes the pain as feeling "sharp" in nature. Last night, the patient ate a hamburger for dinner and his pain immediately worsened. He states the pain always gets worse with eating, especially fatty or greasy foods. He also complains of intermittent back pain, nausea, vomiting and diarrhea for the past several days. The patient notes a strong family history of gallbladder disease and a personal history of GERD. He was seen here in the ED a few days ago for a near syncopal episode at work, but states his abdominal issues were not why he came to the ED. The patient denies LOC, headache, fevers, chills, diaphoresis, visual changes, neck pain, chest pain, breathing difficulties, melena, hematochezia, urinary symptoms, numbness, weakness, lymphadenopathy, rash, or other complaints. Source of History: patient Onset: 7 to 10 days [employer]IM[employer]IN[employer]IAN Position: abdomen Symptom Intensity: 8/10 Quality: sharp Timing: intermittent Modifying Factors (Worsening): eating Associated Symptoms: + nausea, + vomiting, + back pain, + diarrhea Review of Systems See HPI for pertinent positives and negatives. A total of ten systems were reviewed and were otherwise negative. Past Medical & Surgical Medical Problems: (1) Acid reflux (2) Back surgery (3) Head injury (4) Neck surgery Family History Gallbladder disease Heart disease Social History Smoking Status: Never Smoker Alcohol Use: none Drug Use: none Marital Status: single, Housing Status: lives with family Occupation Status: employed, unemployed Current/Historical Medications Scheduled Lorazepam (Lorazepam), 0.5 MG PO BID Omeprazole (Prilosec), 40 MG PO BID Ondasetron Odt (Zofran Odt), 4 MG SL Q6H Allergies Coded Allergies: Ketorolac Tromethamine (Unverified Allergy, Severe, anaphylaxis, 12/18/16) BEE STING (Unverified Allergy, Intermediate, SHORTNESS OF BREATH, 12/18/16) Codeine (Unverified Allergy, Unknown, 12/18/16) Latex (Unverified Allergy, Unknown, hives, bumps on hands and arms , ) Levofloxacin (Unverified Allergy, Unknown, unknown, 12/18/16) Penicillins (Unverified Allergy, Unknown, 12/18/16) Sulfa Drugs (Unverified Allergy, Unknown, 12/18/16) Physical Exam Vital Signs Date Time Temp Pulse Resp B/P (MAP) Pulse Ox O2 Delivery O2 Flow Rate FiO2 06/06/17 16:22 36.7 70 18 135/76 99 06/06/17 15:22 73 18 128/84 98 Room Air 06/06/17 13:15 36.7 95 18 141/89 97 Room Air Physical Exam GENERAL: Awake, alert, well-appearing, in no distress HENT: Normocephalic, atraumatic. Oropharynx unremarkable. EYES: Normal conjunctiva. Sclera non-icteric. NECK: Supple. No nuchal rigidity. FROM. No JVD. RESPIRATORY: Clear to auscultation. CARDIAC: Regular rate, normal rhythm. Extremities warm and well perfused. Pulses equal. ABDOMEN: Soft, non-distended. RLQ and RUQ tenderness to palpation. No rebound or guarding. No masses. RECTAL: Deferred. MUSCULOSKELETAL: Chest examination reveals no tenderness. The back is symmetrical on inspection without obvious abnormality. There is no CVA tenderness to palpation. No joint edema. LOWER EXTREMITIES: Calves are equal size bilaterally and non-tender. No edema. No discoloration. NEURO: Normal sensorium. No sensory or motor deficits noted. SKIN: No rash or jaundice noted. Medical Decision & Procedures ER Provider Diagnostic Interpretation: Radiology results as stated below per my review and radiologist interpretation: GALLBLADDER-ABD LIMITED CLINICAL HISTORY: rug abd pain pain. Nausea. TECHNIQUE: Ultrasound COMPARISON STUDY: None FINDINGS: Trace gallbladder sludge. No shadowing gallstones. Normal gallbladder wall at 2 mm. Common bile duct 3 mm. Liver and pancreas are uniform. Right kidney is negative for hydronephrosis. IMPRESSION: Trace gallbladder sludge. Normal caliber bile ducts. Otherwise normal study. The above report was generated using voice recognition software. It may contain grammatical, syntax or spelling errors. Electronically signed by: Medhat Khan M.D. 06/06/2017 2:03 PM ABD/PELVIS IV CONTRAST ONLY CT DOSE: 271.94 mGy.cm HISTORY: Flank pain Right sided abd pain. US neg. TECHNIQUE: Multiaxial CT images of the abdomen and pelvis were performed following the use of intravenous contrast. A dose lowering technique was utilized adhering to the principles of ALARA. COMPARISON STUDY: None. FINDINGS: Lung bases are clear. Liver spleen and pancreas appear uniform. Kidneys enhance uniformly. The upper abdominal bowel pattern is unremarkable. The appendix is normal. Within the lower small bowel on the left as well as right flank are areas of somewhat edematous fluid-filled change. This is suggestive of a small bowel enteritis. Terminal ileum is specifically is unremarkable. IMPRESSION: 1. Findings suggesting a nonspecific small bowel enteritis. 2. Normal appendix. 3. Nonobstructive bowel pattern. The above report was generated using voice recognition software. It may contain grammatical, syntax or spelling errors. Electronically signed by: Medhat Khan M.D. 06/06/2017 3:26 PM Laboratory Results 06/06/17 13:20 Red Blood Count 5.40, Mean Corpuscular Volume 89.1, Mean Corpuscular Hemoglobin 32.4, Mean Corpuscular Hemoglobin Concent 36.4, Mean Platelet Volume 11.5, Neutrophils (%) (Auto) 70.4, Lymphocytes (%) (Auto) 21.4, Monocytes (%) (Auto) 6.3, Eosinophils (%) (Auto) 1.7, Basophils (%) (Auto) 0.0, Neutrophils # (Auto) 3.69, Lymphocytes # (Auto) 1.12, Monocytes # (Auto) 0.33, Eosinophils # (Auto) 0.09, Basophils # (Auto) 0.00 06/06/17 13:20 Test 06/06/17 13:20 06/06/17 13:44 White Blood Count 5.24 K/uL (4.8-10.8) Red Blood Count 5.40 M/uL (4.7-6.1) Hemoglobin 17.5 g/dL (14.0-18.0) Hematocrit 48.1 % (42-52) Mean Corpuscular Volume 89.1 fL (80-100) Mean Corpuscular Hemoglobin 32.4 pg (25-34) Mean Corpuscular Hemoglobin Concent 36.4 g/dl (32-36) Platelet Count 195 K/uL (130-400) Mean Platelet Volume 11.5 fL (7.4-10.4) Neutrophils (%) (Auto) 70.4 % Lymphocytes (%) (Auto) 21.4 % Monocytes (%) (Auto) 6.3 % Eosinophils (%) (Auto) 1.7 % Basophils (%) (Auto) 0.0 % Neutrophils # (Auto) 3.69 K/uL (1.4-6.5) Lymphocytes # (Auto) 1.12 K/uL (1.2-3.4) Monocytes # (Auto) 0.33 K/uL (0.11-0.59) Eosinophils # (Auto) 0.09 K/uL (0-0.5) Basophils # (Auto) 0.00 K/uL (0-0.2) RDW Standard Deviation 38.5 fL (36.4-46.3) RDW Coefficient of Variation 12.0 % (11.5-14.5) Immature Granulocyte % (Auto) 0.2 % Immature Granulocyte # (Auto) 0.01 K/uL (0.00-0.02) Anion Gap 6.0 mmol/L (3-11) Est Creatinine Clear Calc Drug Dose 84.9 ml/min Estimated GFR () 94.1 Estimated GFR (Non- 81.2 BUN/Creatinine Ratio 10.5 (10-20) Calcium Level 9.2 mg/dl (8.5-10.1) Total Bilirubin 1.2 mg/dl (0.2-1) Direct Bilirubin 0.2 mg/dl (0-0.2) Aspartate Amino Transf (AST/SGOT) 13 U/L (15-37) Alanine Aminotransferase (ALT/SGPT) 22 U/L (12-78) Alkaline Phosphatase 62 U/L (45-117) Total Protein 7.4 gm/dl (6.4-8.2) Albumin 4.5 gm/dl (3.4-5.0) Lipase 101 U/L (73-393) Urine Color YELLOW Urine Appearance CLEAR (CLEAR) Urine pH 7.5 (4.5-7.5) Urine Specific [place] 1.013 (1.000-1.030) Urine Protein NEG (NEG) Urine Glucose (UA) NEG (NEG) Urine Ketones NEG (NEG) Urine Occult Blood NEG (NEG) Urine Nitrite NEG (NEG) Urine Bilirubin NEG (NEG) Urine Urobilinogen NEG (NEG) Urine Leukocyte Esterase NEG (NEG) Laboratory results reviewed by me Medications Administered Medications (Trade) Dose Ordered Sig/Luis Route Start Time Stop Time Status Last Admin Dose Admin Sodium Chloride 1,000 ml @ 125 mls/hr Q8H STAT IV 06/06/17 13:31 06/06/17 16:42 DC 06/06/17 13:31 125 MLS/HR Sodium Chloride 1,000 ml @ 999 mls/hr Q1H1M STAT IV 06/06/17 13:31 06/06/17 14:31 DC 06/06/17 13:31 999 MLS/HR Ondansetron HCl (ZOFRAN ODT 4MG Home Pack) 1 homepack UD ONCE PO 06/06/17 16:15 06/06/17 16:16 DC 06/06/17 16:15 1 HOMEPACK ED Course 1330: The patient was evaluated in room C8. A complete history and physical exam was performed. 1331: NSS 1000 ml @ 999 mls/hr IV, NSS 1000 ml @ 125 mls/hr IV. 1449: I reevaluated the patient. I updated him on his results so far and he is getting ready to go to CT scan. 1605: I reevaluated the patient. He is feeling much better. I discussed his results and discharge instructions and he verbalized complete understanding and agreement. 1615: Zofran 4 mg 1 homepack PO. Medical Decision Triage Nursing notes reviewed. The patient's presentation and history were concerning for right sided abdominal pain. Etiologies such as appendicitis, diverticulitis, obstruction, inflammatory bowel disease, renal colic, PUD, biliary pathology, pancreatitis, mesenteric ischemia, aortic pathology, infections, genitourinary, UTI, perforated viscus, as well as others were entertained. The patient was evaluated. He was hydrated. He declined analgesia. His CBC, chemistry panel, LFTs, and lipase were really unremarkable. Urinalysis unremarkable. The patient underwent gallbladder ultrasound and this showed some sludge but no evidence of cholecystitis. The patient underwent CT imaging. The patient has a mild enteritis noted. No evidence of inflammatory bowel disease. No appendicitis. I discussed this with the patient. He did note having diarrhea at the onset of the symptoms. There is a strong family history of biliary disease. I will have him follow-up with [facility] gastroenterology and then he can follow-up with surgery as his closest family members who have had issues with this type of recent dictation and required cholecystectomy. The patient was offered a prescription of Zofran as he did not want and have anything for pain. He accepted. The patient will follow-up closely in the office. Any worsening symptoms he will come back to the Emergency Room. I gave my usual and customary discussion regarding this issue. By the evaluation outlined above other emergent etiologies such as those listed in the differential, as well as others, were deemed relatively unlikely. The patient was educated about the findings as listed above. All questions were answered and the patient was pleased with the treatment. Return instructions were outlined and the patient was discharged in stable condition. The patient was referred to GI and surgery for follow-up for a recheck of the current condition. Medication Reconcilliation Current Medication List: was personally reviewed by me Blood Pressure Screening Patient's blood pressure: Elevated blood pressure Blood pressure disposition: Elevated BP felt to be situational Impression Primary Impression: Right upper quadrant abdominal pain Additional Impression: Right lower quadrant abdominal pain Scribe Attestation The scribe's documentation has been prepared under my direction and personally reviewed by me in its entirety. I confirm that the note above accurately reflects all work, treatment, procedures, and medical decision making performed by me. Departure Information Dispostion Home / Self-Care Prescriptions Ondasetron Odt (ZOFRAN ODT) 4 Mg Tab 4 MG SL Q6H for Nausea, #6 TAB 2 Refills Prov: Jerad Avitia MD 06/06/17 Referrals No Doctor, Assigned (PCP) Patient Instructions My [facility] Additional Instructions ABDOMINAL PAIN INSTRUCTIONS: Ibuprofen(Motrin, Advil) may be used for fever or pain. Use 600mg every six hours as needed. Take with food. Avoid using more than 2400mg in a 24 hour period. Do not use 2400mg per day for more than three consecutive days without physician direction. Prolonged inappropriate use can lead to stomach upset or ulcers. (AND/OR) Acetaminophen(Tylenol) may be used for fever or pain. Use 1000mg every six hours as needed. Avoid using more than 4000mg in a 24 hour period. Zofran 4 mg oral dissolving tablets: take one tablet and allow it to melt in your mouth every 4 hours as needed for nausea. Rest and drink plenty of fluids as tolerated. Slow sips of water or sports drinks are recommended instead of large amounts all at once. Continue current medications. Once your stomach is settled start with a clear liquid diet (jello, soup broth, etc.) and then advance as tolerated. You should avoid full, heavy meals for about 24 hrs from the time your symptoms resolved. Return to the ER immediately for worsening or persistent abdominal pain, vomiting, fevers, chest pains, difficulty breathing, black or bloody stools, worsening of your condition, or as needed. Follow up with Dr. king and Dr. Meng as discussed for a recheck of your current condition. Call the office tomorrow to set up appointments. Follow-up with Dr. king first as the gallbladder had sludge and the small bowel was mildly inflamed. Problem Qualifiers
[2017-06-09] MEDS ORDERED: OXYC-57 PO (18:17)
== END 2017-06-06 16:23 | disposition home or self-care (01) ==
LOC: C.EDB 13:11 → C.EDC 16:23
DX: R10.11 Right upper quadrant pain (principal); R10.31 Right lower quadrant pain; K21.9 Gastro-esophageal reflux disease without esophagitis; Z82.49 Family history of ischemic heart disease and other diseases of the circulatory system

== ENCOUNTER 2017-06-09 13:38 | Day surgery (SDC) | payer OTHER ==
[~2017-06-09] VITALS: Ht 170.2 cm; Wt 73.0 kg
[~2017-06-09 13:38] MED LIST changes: +CEFAZOLIN 2000 MG/60 ML D5W IV SCH; +LACTATED RINGER'S 1000ML 1,000 ML IV SCH; +ONDA4TAB10 SL
[2017-06-09 14:08] VITALS: BP 142/79; PULSE 71; TEMP 37.1; O2SAT 99; Ht 170.2 cm; Wt 73.0 kg
[2017-06-09] MEDS ORDERED: EpHEDrine SULFATE INJ 50 MG/ML AMP IV PRN (16:00)
[2017-06-09] MEDS ORDERED: MEPERIDINE HCL 25 MG/ML CARP IV PRN (16:00)
[2017-06-09] MEDS ORDERED: NURSING VERBAL MED ORDER ONE ×3 (16:00→19:00)
[2017-06-09] MEDS ORDERED: HYDROmorphone INJ 2 MG/ML SYR/VIAL IV PRN (16:00)
[2017-06-09] MEDS ORDERED: LABETALOL HCL IV 5 MG/ML 20ML IV PRN (16:00)
[2017-06-09] MEDS ORDERED: FENTANYL CITRATE INJ 50 MCG/1 ML 2 ML VIAL IV PRN (16:00)
[2017-06-09] MEDS ORDERED: ONDANSETRON INJ 2 MG/ML 2 ML VIAL IV PRN (16:00)
[2017-06-09] MEDS ORDERED: FLUMAZENIL 0.1 MG/1 ML 10 ML VIAL IV PRN (16:00)
[2017-06-09] MEDS ORDERED: PHENYLEPHRINE 100MCG/ML 5ML SYR IV PRN (16:00)
[2017-06-09] MEDS ORDERED: NALOXONE HCL 0.4 MG/1 ML VIAL/CARP IV PRN (16:00)
[2017-06-09] MEDS ORDERED: ATROPINE SULFATE 0.1 MG/ML 5ML SYR IV PRN (16:00)
[2017-06-09] MEDS ORDERED: FENTANYL CITRATE INJ 50 MCG/1 ML 2 ML VIAL ONE ×2 (16:11→16:51)
[2017-06-09] MEDS ORDERED: MIDAZOLAM HCL 1 MG/ML 2ML VIAL ONE (16:12)
[2017-06-09] MEDS ORDERED: BUPIVACAINE 0.5 % 5 MG/1 ML MPF 30ML VIAL ONE (16:16)
[2017-06-09] MEDS ORDERED: LIDOCAINE HCL 1% 20 ML VIAL ONE (16:16)
[2017-06-09] MEDS ORDERED: CLINDAMYCIN 600 MG/54 ML D5W IV STA (16:18)
[2017-06-09] MEDS ORDERED: DEXAMETHASONE SOD INJ 4 MG/ML VIAL ONE (16:48)
[2017-06-09] MEDS ORDERED: PROPOFOL IV EMULSION 10 MG/ML 20 ML VIAL IV ONE (16:48)
[2017-06-09] MEDS ORDERED: ROCURONIUM BROMIDE 10 MG/ML 5 ML VIAL ONE (16:48)
[2017-06-09] MEDS ORDERED: ONDANSETRON INJ 2 MG/ML 2 ML VIAL ONE ×2 (16:48→17:18)
[2017-06-09] MEDS ORDERED: DiphenhydrAMINE HCL 50 MG/ML VIAL ONE (16:48)
[2017-06-09] MEDS ORDERED: LIDOCAINE HCL 2% 2 ML VIAL (20MG/ML) ONE (16:48)
[2017-06-09] MEDS ORDERED: NEOSTIGMINE METHYLSULFATE 5 MG/5 ML SYR ONE (17:18)
[2017-06-09] MEDS ORDERED: GLYCOPYRROLATE INJ 0.2 MG/ML VIAL ONE (17:18)
[2017-06-09] MEDS ORDERED: OXYCODONE/ACETAMINOPHEN 5-325 TAB PO PRN (18:00)
--- NOTE | 2017-06-09 18:00 | [facility] Operative Report ---
Operative Report Operative Date Jun 09, 2017. Pre-Operative Diagnosis biliary colic and gallbladder sludge Post-Operative Diagnosis same Procedure(s) Performed laparoscopic cholecystectomy Surgeon Dr. Galileo Coffman Inductor Tester Surgeon(s) Dr. Adolfo Sow Estimated Blood Loss 5 ml Findings Liver appeared normal. Gallbladder appeared slightly edematous. Specimens A. gallbladder (permanent) Complication(s) None Disposition Recovery Room / PACU Indications Abelardo Garcia is a 31 year old man with biliary colic and gallbladder sludge causing right upper quadrant pain. Indications, risks, benefits and potential complications discussed at length with the patient and his father in clinic earlier today. All questions answered to apparent satisfaction and we were asked to proceed with surgery. Consent was freely signed. Description of Procedure Patient was brought to the OR and placed in the operating room table in supine position. All pressure points were appropriately padded. Anesthesia was induced without difficulty. The abdomen was prepped and draped in the usual sterile fashion. Local anesthetic (1% Lidocaine + 1/4% Marcaine 50/50% mixture ) was injected superior to the umbilicus. A 10mm incision was made and carried down through subcutaneous tissue. Fascia was identified, and two Jose G clamps were placed for upward traction. The fascia was incised with a scalpel. Peritoneum was identified and elevated with hemostats. This was also sharply incised to open the abdomen, being careful to avoid bowel upon entry. A 12mm Heart port was placed, and insufflation was established. The abdomen was explored. The liver was examined and found to be normal. The gallbladder was examined and found to be slightly edematous. A 5mm port was placed just left of midline inferior to the xiphoid process under direct vision. Two more 5mm ports were placed in the right abdomen below the liver edge. The patient was positioned with left side down and reverse trendelenburg to expose the gall bladder. The dome of the gallbladder was retracted superiorly and the neck of the gallbladder was retracted laterally to expose the area of dissection. Omental adhesions were gently taken down with blunt dissection. A Maryland grasper was then used to dissect out the cystic duct. When the cystic duct was dissected out and the triangle of Calot clearly identified, the duct was clipped and cut. Next, the cystic artery was dissected out using a [place] grasper. When clearly dissected and identified, this was also clipped and cut. No further structures were observed going to the gallbladder. The gallbladder was then retracted cranially and the gallbladder was taken off the liver bed using an L-hook for cautery. The gallbladder was liberated from the liver bed without complications. The 10mm scope was then switched out for the 5mm scope, and a 10mm endocatch bag was placed through the umbilical port. The gallbladder was placed in the endocatch bag and removed from the abdomen; the specimen was passed off the field to be taken to pathology. The gallbladder fossa was inspected and found to be hemostatic. The ports were then removed, and the abdomen desufflated. The instrument and sponge counts were verified to be correct by the nurse in charge. The fascia at the umbilical port was identified, and Kochers were placed for upward traction. A 2-0 Vicryl suture was used to place two figure of eight sutures to close the fascial defect. The skin incisions were all closed with 4- 0 monocyl and Dermabond was applied. The patient was then awakened from anesthesia without difficulty and taken to the post op recovery area, having suffered no untoward events. I attest to the content of the Intraoperative Record and any orders documented therein. Any exceptions are noted below.
--- NOTE | 2017-06-09 18:16 | Anesthesiology Progress Note ---
Anesthesia Post Op Note Date & Time Jun 09, 2017 at 18:16 Vital Signs Pain Intensity: 3 Vital Signs Past 12 Hours Date Time Temp Pulse Resp B/P (MAP) Pulse Ox O2 Delivery O2 Flow Rate FiO2 06/09/17 18:00 80 17 148/94 100 Mask 10 06/09/17 17:50 92 18 144/118 100 Mask 10 06/09/17 17:46 36.4 71 16 141/86 96 Mask 10 06/09/17 14:08 37.1 71 20 142/79 (100) 99 Room Air Notes Mental Status: alert / awake / arousable, participated in evaluation Pt Amnestic to Procedure: Yes Nausea / Vomiting: adequately controlled Pain: adequately controlled Airway Patency, RR, SpO2: stable & adequate BP & HR: stable & adequate Hydration State: stable & adequate Anesthetic Complications: no major complications apparent
[2017-06-09] MEDS ORDERED: OXYC-57 PO (18:17)
--- NOTE | 2017-06-09 18:30 | Discharge Instructions ---
Discharge Instructions Date of Service Jun 09, 2017. Visit Reason for Visit: Biliary Colic Discharge Discharge Diagnosis / Problem: Galbladder sludge Discharge Goals Goal(s): Decrease discomfort, Improve function Activity Recommendations Activity Limitations: as noted below Lifting Limitations: no more than 10 pounds Exercise/Sports Limitations: until after follow-up appointment May Resume Sexual Activity: when tolerated Shower/Bathe: tomorrow (You have Dermabond (like a glue) over your incisions. This will fall off on its own over time. Do not soak your incisions, as in a bath tub or swimming pool.) Driving or Machine Use: Not until completely pain free and no longer taking narcotic pain medications Anesthesia . Post Anesthesia Instructions: If you have had General Anesthesia or IV Sedation: * Do not drive today. * Resume driving when surgeon permits - when completely pain free and no longer taking narcotic pain medications * Do not make important decisions or sign legal documents today. * Call surgeon for: 1. Temperature elevations greater than 101 degrees F. 2. Uncontrollable pain. 3. Excessive bleeding. 4. Persistent nausea and vomiting. 5. Medication intolerance (nausea, vomiting or rash). * For nausea and vomiting use only clear liquids such as: tea, soda, bouillon until nausea subsides, then gradually increase diet as tolerated. * If you have any concerns or questions, call your surgeon's office. If physician is unavailable and it is an emergency, call 911 or go to the nearest emergency room. . Diet Recommendations Recommended Home Diet: resume previous diet Procedures Procedures Performed: laparoscopic cholecystectomy Pending Studies Studies pending at discharge: yes List of pending studies: Gallbladder pathology - will be discussed at follow up appointment Work Instructions Return To Work: after follow-up (May return to work in 2 weeks. If returning sooner than that, must be on light duty with no lifting greater than 10 lbs and no chance of abdominal contact (punching, kicking, hitting)) Medical Emergencies . Who to Call and When: Medical Emergencies: If at any time you feel your situation is an emergency, please call 911 immediately. . Non-Emergent Contact Non-Emergency issues call your: Primary Care Provider, Surgeon Call Non-Emergent contact if: you have a fever, temperature is above 101, your pain is not controlled, your pain is worsening, wound has increased drainage, wound has increased redness, wound has increased pain . Past History Medical & Surgical History: (1) Right lower quadrant abdominal pain . "Provider Documentation" section prepared by Tierney Coffman. . [place] Drug Monitoring Program Search Results: patient reviewed within database (No concerning findings)
[2017-06-09 18:45] VITALS: BP 138/83; PULSE 82; TEMP 37.2; O2SAT 97
[2017-06-09 19:15] VITALS: BP 137/82; PULSE 90; O2SAT 96
[2017-06-09] MEDS ORDERED: ACETAMINOPHEN 500 MG TAB PO STA (19:20)
[2017-06-09 19:45] VITALS: BP 142/84; PULSE 93; TEMP 37.3; O2SAT 96
[2017-06-10] MEDS ORDERED: CLINDAMYCIN 600 MG/54 ML D5W IV SCH (06:00)
== END 2017-06-09 19:50 | disposition home or self-care (01) ==
LOC: C.ACU 13:38
PROVIDERS: ATTEND Student in an Organized Health Care Education/Training Program
DX: K81.1 Chronic cholecystitis (principal); F43.10 Post-traumatic stress disorder, unspecified

== ENCOUNTER 2017-09-23 09:43 | Emergency (ER) | payer OTHER ==
[~2017-09-23] VITALS: Ht 170.2 cm; Wt 76.7 kg
[~2017-09-23 09:43] MED LIST changes: -CEFAZOLIN 2000 MG/60 ML D5W IV SCH; -LACTATED RINGER'S 1000ML 1,000 ML IV SCH; -ONDA4TAB10 SL
[2017-09-23] MEDS ORDERED: ONDANSETRON INJ 2 MG/ML 2 ML VIAL IV STA (09:50)
[2017-09-23] MEDS ORDERED: SODIUM CHLORIDE 0.9% 1000ML 1,000 ML IV STA (09:50)
[2017-09-23 09:52] VITALS: TEMP 36.6; Ht 170.2 cm; Wt 76.7 kg
--- NOTE | 2017-09-23 09:55 | EMERGENCY ROOM VISIT NOTE ---
History Report prepared by Patricia: Prashant Mejia Under the Supervision of: Dr. Vasquez Davis D.O. First contact with patient: 09:49 Chief Complaint: BACK PAIN Stated Complaint: BACK PAIN History of Present Illness The patient is a 31 year old male who presents to the Emergency Room with complaints of left flank pain that began this morning. He notes that his pain is wrapping around to his left abdomen as well. He has a past medical history of a cholecystectomy, past kidney stones, GERD, and PTSD. He is experiencing nausea and vomiting. He denies any fevers or chills. He takes Omeprazole and Ativan daily. Source of History: patient Onset: this morning Position: other (left flank pain) Symptom Intensity: moderate Quality: sharp Timing: constant Associated Symptoms: + nausea, + vomiting, + abdominal pain, No fevers, No chills Review of Systems See HPI for pertinent positives & negatives. A total of 10 systems reviewed and were otherwise negative. Past Medical & Surgical Medical Problems: (1) Acid reflux (2) Back surgery (3) Head injury (4) Neck surgery Family History Gallbladder disease Heart disease Social History Smoking Status: Never Smoker Smokeless Tobacco Use: Yes Alcohol Use: none Drug Use: none Marital Status: single, Housing Status: lives with family Occupation Status: employed, unemployed Current/Historical Medications Scheduled Lorazepam (Lorazepam), 0.5 MG PO BID Omeprazole (Prilosec), 40 MG PO BID Tamsulosin Hcl (Flomax), 0.4 MG PO DAILY Scheduled PRN Oxycodone Immediate Rel Tab (Roxicodone Ir), 1-2 TAB PO Q4H PRN for Severe Pain Allergies Coded Allergies: Ketorolac Tromethamine (Unverified Allergy, Severe, anaphylaxis, 09/23/17) BEE STING (Unverified Allergy, Intermediate, SHORTNESS OF BREATH, 09/23/17 ) Codeine (Unverified Allergy, Unknown, 09/23/17) Latex (Unverified Allergy, Unknown, hives, bumps on hands and arms , 09/23) Levofloxacin (Unverified Allergy, Unknown, unknown, 09/23/17) Penicillins (Unverified Allergy, Unknown, 09/23/17) Sulfa Drugs (Unverified Allergy, Unknown, 09/23/17) Physical Exam Vital Signs Date Time Temp Pulse Resp B/P (MAP) Pulse Ox O2 Delivery O2 Flow Rate FiO2 09/23/17 11:50 90 20 127/79 96 09/23/17 10:15 123/65 98 09/23/17 10:00 124/87 97 09/23/17 09:56 137/82 97 09/23/17 09:52 36.6 74 16 137/82 98 Room Air 09/23/17 09:51 106 Physical Exam GENERAL: Patient is awake, alert, and is actively retching. Patient is uncomfortable and very anxious appearing. EYES: The conjunctivae are clear. The pupils are round and reactive. EARS, NOSE, MOUTH AND THROAT: The nose is without any evidence of any deformity. Mucous membranes are moist tongue is midline NECK: The neck is nontender and supple. RESPIRATORY: Normal respiratory effort is noted there is no evidence of wheezing rhonchi or rales CARDIOVASCULAR: Tachycardic but regular rate and regular rhythm noted. There are no definite murmurs to auscultation. No rubs or gallops normal S1 normal S2 GASTROINTESTINAL: The abdomen is soft. Bowel sounds are present in all quadrants. Abdomen is nontender BACK: Significant left CVA tenderness to percussion. ROM appeared intact. MUSCULOSKELETAL/EXTREMITIES: There is no evidence of gross deformity full range of motion is noted in the hips and shoulders SKIN: There is no obvious evidence of any rash. There are no petechiae, pallor or cyanosis noted. NEUROLOGIC: Patient is awake alert and oriented x3. Medical Decision & Procedures ER Provider Diagnostic Interpretation: Radiology results as stated below per my review and radiologist interpretation: SINGLE VIEW CHEST CLINICAL HISTORY: Generalized abdominal pain. FINDINGS: An AP, portable, upright chest radiograph is compared to study dated 06/02/2017. The examination is degraded by portable technique, apical lordotic positioning, and patient rotation. The cardiomediastinal silhouette is unremarkable. The lungs and pleural spaces are clear. No pneumothorax is seen. The bony thorax is grossly intact. IMPRESSION: No active disease in the chest. Electronically signed by: Tee Shine M.D. 09/23/2017 10:05 AM Dictated Date/Time: 09/23/2017 10:[address] SCAN OF THE ABDOMEN AND PELVIS WITHOUT IV CONTRAST CLINICAL HISTORY: Left flank pain. COMPARISON STUDY: Abdominal CT dated 06/06/2017. TECHNIQUE: CT scan of the abdomen and pelvis is performed from the lung bases to the proximal femora. Images are reviewed in the axial, sagittal, and coronal planes. IV contrast was not administered for this examination as per the referring clinician. A dose lowering technique was utilized adhering to the principles of ALARA. CT DOSE: 481.65 mGycm FINDINGS: Lung bases: The heart is normal in size and without pericardial effusion. The lung bases are clear noting left basilar atelectasis. Liver: The unenhanced liver is normal in size, contour, and attenuation. There is no intrahepatic biliary ductal dilatation. Gallbladder: Surgically absent noting clips in the gallbladder fossa. Spleen: Normal in size and attenuation. Pancreas: Unremarkable. Adrenal glands: Unremarkable. Kidneys: The unenhanced kidneys are normal in size. There is a 4 mm obstructing calculus in the distal left ureter seen on image #343. This is located approximate 1 cm above the vesicoureteral junction and causes minimal fullness of the left renal collecting system. There is minimal associated left-sided perinephric and periureteric stranding. No additional calculi are identified in either kidney. No hydronephrosis is seen. There is no evidence of contour deforming renal mass lesion. Abdominal vasculature: The abdominal aorta is normal in course and caliber. Bowel: The small bowel and colon are normal in course and caliber. The appendix is well-visualized and normal. Peritoneum: There is no intraperitoneal free air or abdominal ascites. There is a small fat-containing umbilical hernia. Lymphadenopathy: None. Pelvic viscera: The bladder, prostate, and seminal vesicles are normal as imaged. Skeletal structures: No lytic or blastic lesions are seen. IMPRESSION: 1. There is a 4 mm obstructing calculus in the distal left ureter, which causes mild fullness of the left renal collecting system. 2. No additional calculi are seen in either kidney. Electronically signed by: Tee Shine M.D. 09/23/2017 11:00 AM Dictated Date/Time: 09/23/2017 10:56 AM Laboratory Results 09/23/17 10:00 Red Blood Count 4.84, Mean Corpuscular Volume 88.8, Mean Corpuscular Hemoglobin 32.6, Mean Corpuscular Hemoglobin Concent 36.7, Mean Platelet Volume 11.3, Neutrophils (%) (Auto) 78.5, Lymphocytes (%) (Auto) 13.5, Monocytes (%) (Auto) 6.0, Eosinophils (%) (Auto) 1.5, Basophils (%) (Auto) 0.2, Neutrophils # (Auto) 5.23, Lymphocytes # (Auto) 0.90, Monocytes # (Auto) 0.40, Eosinophils # (Auto) 0.10, Basophils # (Auto) 0.01 09/23/17 10:00 Test 09/23/17 10:00 White Blood Count 6.66 K/uL (4.8-10.8) Red Blood Count 4.84 M/uL (4.7-6.1) Hemoglobin 15.8 g/dL (14.0-18.0) Hematocrit 43.0 % (42-52) Mean Corpuscular Volume 88.8 fL (80-100) Mean Corpuscular Hemoglobin 32.6 pg (25-34) Mean Corpuscular Hemoglobin Concent 36.7 g/dl (32-36) Platelet Count 162 K/uL (130-400) Mean Platelet Volume 11.3 fL (7.4-10.4) Neutrophils (%) (Auto) 78.5 % Lymphocytes (%) (Auto) 13.5 % Monocytes (%) (Auto) 6.0 % Eosinophils (%) (Auto) 1.5 % Basophils (%) (Auto) 0.2 % Neutrophils # (Auto) 5.23 K/uL (1.4-6.5) Lymphocytes # (Auto) 0.90 K/uL (1.2-3.4) Monocytes # (Auto) 0.40 K/uL (0.11-0.59) Eosinophils # (Auto) 0.10 K/uL (0-0.5) Basophils # (Auto) 0.01 K/uL (0-0.2) RDW Standard Deviation 39.6 fL (36.4-46.3) RDW Coefficient of Variation 12.4 % (11.5-14.5) Immature Granulocyte % (Auto) 0.3 % Immature Granulocyte # (Auto) 0.02 K/uL (0.00-0.02) Prothrombin Time 12.0 SECONDS (9.0-12.0) Prothromb Time International Ratio 1.1 (0.9-1.1) Activated Partial Thromboplast Time 28.7 SECONDS (21.0-31.0) Partial Thromboplastin Ratio 1.1 Urine Color YELLOW Urine Appearance CLEAR (CLEAR) Urine pH 7.0 (4.5-7.5) Urine Specific [place] 1.021 (1.000-1.030) Urine Protein NEG (NEG) Urine Glucose (UA) NEG (NEG) Urine Ketones NEG (NEG) Urine Occult Blood 3+ (NEG) Urine Nitrite NEG (NEG) Urine Bilirubin NEG (NEG) Urine Urobilinogen NEG (NEG) Urine Leukocyte Esterase NEG (NEG) Urine WBC (Auto) 1-5 /hpf (0-5) Urine RBC (Auto) >30 /hpf (0-4) Urine Hyaline Casts (Auto) 1-5 /lpf (0-5) Urine Epithelial Cells (Auto) 10-20 /lpf (0-5) Urine Bacteria (Auto) NEG (NEG) Anion Gap 9.0 mmol/L (3-11) Est Creatinine Clear Calc Drug Dose 92.7 ml/min Estimated GFR () 104.6 Estimated GFR (Non- 90.2 BUN/Creatinine Ratio 11.1 (10-20) Calcium Level 8.6 mg/dl (8.5-10.1) Total Bilirubin 1.1 mg/dl (0.2-1) Direct Bilirubin 0.2 mg/dl (0-0.2) Aspartate Amino Transf (AST/SGOT) 16 U/L (15-37) Alanine Aminotransferase (ALT/SGPT) 18 U/L (12-78) Alkaline Phosphatase 56 U/L (45-117) Total Protein 6.9 gm/dl (6.4-8.2) Albumin 4.0 gm/dl (3.4-5.0) Lipase 136 U/L (73-393) Laboratory results per my review. Medications Administered Medications (Trade) Dose Ordered Sig/Luis Route Start Time Stop Time Status Last Admin Dose Admin Sodium Chloride 1,000 ml @ 999 mls/hr Q1H1M STAT IV 09/23/17 09:50 09/23/17 10:50 DC 09/23/17 10:07 999 MLS/HR ED Course 0949: The patient was evaluated in room B9. A complete history and physical examination were performed. 0950: Ordered Zofran Inj 4 mg IV, NSS 1,000 ml @ 999 mls/hr IV 1125: Upon reevaluation, the patient is resting. I discussed the results and treatment plan with him. He verbalized agreement of the treatment plan. He was discharged home. Medical Decision Differential diagnosis: Etiologies such as renal colic, appendicitis, diverticulitis, mesenteric ischemia, aortic pathology, infections, inflammatory bowel disease, PUD, biliary pathology, UTI, as well as others were entertained. Nursing notes reviewed. The patient is a 31-year-old male who presented to the emergency department for an evaluation of left flank pain. The patient had a rather acute onset of left flank pain. His history of physical exam appeared to be consistent with renal colic. He was found have hematuria. The patient was offered pain medication in the emergency department but did not wish to have anything for pain at this time. He was treated with IV fluids and his symptoms have significantly improved. The patient was found have a distal left ureteral calculus which I feel explains his symptoms. He was encouraged to drink plenty clear liquids and continue all medications as prescribed. He was also encouraged to follow-up with his primary care physician as soon as possible return to the emergency department immediately symptoms change worsen or the need arises. The patient also stated that he was going out of town. He was encouraged to go to the closest emergency department if symptoms similar to today's acute pain reoccurred. Medication Reconcilliation Current Medication List: was personally reviewed by me Blood Pressure Screening Patient's blood pressure: Normal blood pressure Blood pressure disposition: Did not require urgent referral Impression Primary Impression: Left flank pain Additional Impression: Kidney stone Scribe Attestation The scribe's documentation has been prepared under my direction and personally reviewed by me in its entirety. I confirm that the note above accurately reflects all work, treatment, procedures, and medical decision making performed by me. Departure Information Dispostion Home / Self-Care Prescriptions Tamsulosin Hcl (FLOMAX) 0.4 Mg Cap 0.4 MG PO DAILY, #10 CAP Prov: Vasquez Davis, DO 09/23/17 Oxycodone Immediate Rel Tab (ROXICODONE IR) 5 Mg Tab 1-2 TAB PO Q4H Y for Severe Pain, #24 TAB Prov: Vasquez Davis, DO 09/23/17 Referrals Vicente Tanner M.D. (PCP) Forms HOME CARE DOCUMENTATION FORM, IMPORTANT VISIT INFORMATION, Work Instructions Patient Instructions Kidney Stones, My [facility] Additional Instructions Continue all medications as prescribed. Continue using Tylenol for mild pain. Continue to drink plenty clear liquids. Follow-up with your family doctor soon as possible. Problem Qualifiers
--- NOTE | 2017-09-23 10:07 | DIAGNOSTIC IMAGING REPORT ---
SINGLE VIEW CHEST CLINICAL HISTORY: Generalized abdominal pain. FINDINGS: An AP, portable, upright chest radiograph is compared to study dated 06/02/2017. The examination is degraded by portable technique, apical lordotic positioning, and patient rotation. The cardiomediastinal silhouette is unremarkable. The lungs and pleural spaces are clear. No pneumothorax is seen. The bony thorax is grossly intact. IMPRESSION: No active disease in the chest. Electronically signed by: Tee Shine M.D. 09/23/2017 10:05 AM Dictated Date/Time: 09/23/2017 10:05 AM
[2017-09-23 10:24] LABS: BASO % 0.2 %; BASO ABS # 0.01 K/uL (0-0.2); COMPLETE YES; EOS % 1.5 %; IG% 0.3 %; LYMPH % 13.5 %; MEAN CELL VOLUME 88.8 fL (80-100); MEAN CORPUSCULAR HEMOGLOBIN 32.6 pg (25-34); MEAN CORPUSCULAR HGB CONC 36.7 g/dl (32-36); MEAN PLATELET VOLUME 11.3 fL (7.4-10.4); NEUT % 78.5 %; PLATELET COUNT 162 K/uL (130-400); RED BLOOD COUNT 4.84 M/uL (4.7-6.1); WHITE BLOOD COUNT 6.66 K/uL (4.8-10.8)
[2017-09-23 10:36] LABS: INR 1.1 (0.9-1.1); PARTIAL THROMBOPLASTIN RATIO 1.1
[2017-09-23 10:41] LABS: URINE APPEARANCE CLEAR (CLEAR); URINE BILIRUBIN NEG (NEG); URINE COLOR YELLOW; URINE NITRITE NEG (NEG); URINE SPECIFIC GRAVITY 1.021 (1.000-1.030); UROBILINOGEN NEG (NEG)
[2017-09-23 10:42] LABS: BUN/CREATININE RATIO 11.1 (10-20); CALCIUM 8.6 mg/dl (8.5-10.1); CREATININE 1.1 mg/dl (0.60-1.40); MANUAL MICROSCOPIC REQUIRED? NO; POTASSIUM 3.7 mmol/L (3.5-5.1); REVIEW REQ? NO
--- NOTE | 2017-09-23 11:02 | DIAGNOSTIC IMAGING REPORT ---
CT SCAN OF THE ABDOMEN AND PELVIS WITHOUT IV CONTRAST CLINICAL HISTORY: Left flank pain. COMPARISON STUDY: Abdominal CT dated 06/06/2017. TECHNIQUE: CT scan of the abdomen and pelvis is performed from the lung bases to the proximal femora. Images are reviewed in the axial, sagittal, and coronal planes. IV contrast was not administered for this examination as per the referring clinician. A dose lowering technique was utilized adhering to the principles of ALARA. CT DOSE: 481.65 mGycm FINDINGS: Lung bases: The heart is normal in size and without pericardial effusion. The lung bases are clear noting left basilar atelectasis. Liver: The unenhanced liver is normal in size, contour, and attenuation. There is no intrahepatic biliary ductal dilatation. Gallbladder: Surgically absent noting clips in the gallbladder fossa. Spleen: Normal in size and attenuation. Pancreas: Unremarkable. Adrenal glands: Unremarkable. Kidneys: The unenhanced kidneys are normal in size. There is a 4 mm obstructing calculus in the distal left ureter seen on image #343. This is located approximate 1 cm above the vesicoureteral junction and causes minimal fullness of the left renal collecting system. There is minimal associated left-sided perinephric and periureteric stranding. No additional calculi are identified in either kidney. No hydronephrosis is seen. There is no evidence of contour deforming renal mass lesion. Abdominal vasculature: The abdominal aorta is normal in course and caliber. Bowel: The small bowel and colon are normal in course and caliber. The appendix is well-visualized and normal. Peritoneum: There is no intraperitoneal free air or abdominal ascites. There is a small fat-containing umbilical hernia. Lymphadenopathy: None. Pelvic viscera: The bladder, prostate, and seminal vesicles are normal as imaged. Skeletal structures: No lytic or blastic lesions are seen. IMPRESSION: 1. There is a 4 mm obstructing calculus in the distal left ureter, which causes mild fullness of the left renal collecting system. 2. No additional calculi are seen in either kidney. Electronically signed by: Tee Shine M.D. 09/23/2017 11:00 AM Dictated Date/Time: 09/23/2017 10:56 AM
[2017-09-23] MEDS ORDERED: OXYC1TAB3 PO (11:17)
[2017-09-23] MEDS ORDERED: TAMS0.4C38 PO (11:19)
[2017-09-23 11:50] VITALS: BP 127/79; PULSE 90; O2SAT 96
== END 2017-09-23 11:52 | disposition home or self-care (01) ==
LOC: EDBD 09:43 → C.EDB 09:44
DX: R10.9 Unspecified abdominal pain (principal); N20.0 Calculus of kidney; K21.9 Gastro-esophageal reflux disease without esophagitis; Z87.442 Personal history of urinary calculi; Z90.49 Acquired absence of other specified parts of digestive tract; Z79.899 Other long term (current) drug therapy

== ENCOUNTER → 2018-01-26 | Outpatient (CLI) | payer OTHER ==
[~2018-01-26] MED LIST changes: +OXYC1TAB3 PO
--- NOTE | 2018-01-26 15:32 | DIAGNOSTIC IMAGING REPORT ---
RIGHT SHOULDER 3 VIEWS HISTORY: RIGHT SHOULDER INJURY COMPARISON: None. FINDINGS: There is no fracture or dislocation. Soft tissues are unremarkable. The right clavicle is intact. IMPRESSION: No fractures. Electronically signed by: Mal Ojeda M.D. 01/26/2018 3:31 PM Dictated Date/Time: 01/26/2018 3:29 PM
== END | disposition home or self-care (01) ==
LOC: C.RADPV 15:18
PROVIDERS: ATTEND Family Medicine
DX: S49.91XA Unspecified injury of right shoulder and upper arm, initial encounter (principal); X58.XXXA Exposure to other specified factors, initial encounter

== ENCOUNTER 2018-06-11 13:33 | Emergency (ER) | payer OTHER ==
[~2018-06-11] VITALS: Ht 170.2 cm; Wt 73.2 kg
[~2018-06-11 13:33] MED LIST changes: -ATV5X PO; -OXYC1TAB3 PO; +PRED20TA PO
[2018-06-11 13:34] VITALS: TEMP 37.1; Ht 170.2 cm; Wt 73.2 kg
[2018-06-11] MEDS ORDERED: METHYLPREDNISOLONE 125 MG VIAL IV STA (13:46)
[2018-06-11] MEDS ORDERED: LEVO1TAB35 PO (13:54)
[2018-06-11 14:11] LABS: BASO % 0.1 %; BASO ABS # 0.01 K/uL (0-0.2); HEMOGLOBIN 16.9 g/dL (14.0-18.0); IG# 0.16 K/uL (0.00-0.02); LYMPH ABS # 0.77 K/uL (1.2-3.4); MEAN CELL VOLUME 90.6 fL (80-100); MEAN CORPUSCULAR HEMOGLOBIN 33.3 pg (25-34); MEAN CORPUSCULAR HGB CONC 36.7 g/dl (32-36); MEAN PLATELET VOLUME 10.7 fL (7.4-10.4); MONO % 2.6 %; MONO ABS # 0.22 K/uL (0.11-0.59); NEUT % 86.4 %; NEUT ABS # 7.38 K/uL (1.4-6.5); PLATELET COUNT 183 K/uL (130-400); RED CELL DISTRIBUTION WIDTH CV 12.5 % (11.5-14.5); RED CELL DISTRIBUTION WIDTH SD 41.5 fL (36.4-46.3); WHITE BLOOD COUNT 8.54 K/uL (4.8-10.8)
[2018-06-11 14:20] LABS: INR 1.1 (0.9-1.1); PTT PATIENT 25.2 SECONDS (21.0-31.0)
[2018-06-11 14:27] LABS: CALCIUM 8.7 mg/dl (8.5-10.1); CREATININE 1.2 mg/dl (0.60-1.40); POTASSIUM 3.9 mmol/L (3.5-5.1)
--- NOTE | 2018-06-11 14:45 | DIAGNOSTIC IMAGING REPORT ---
TWO VIEW CHEST CLINICAL HISTORY: Cough. FINDINGS: PA and lateral chest radiographs are compared to study dated 04/25/2018. The cardiomediastinal silhouette is unremarkable. The lungs and pleural spaces are clear. There is no pneumothorax. The bony thorax appears intact. Cholecystectomy clips are noted in the upper abdomen. IMPRESSION: No active disease in the chest. Electronically signed by: Tee Shine M.D. 06/11/2018 2:44 PM Dictated Date/Time: 06/11/2018 2:43 PM
[2018-06-11] MEDS ORDERED: VNTHFA/IN INH (15:10)
--- NOTE | 2018-06-11 15:11 | EMERGENCY ROOM VISIT NOTE ---
History First contact with patient: 13:38 Chief Complaint: RESPIRATORY PROBLEMS Stated Complaint: TIGHTNESS IN CHEST Nursing Triage Summary: bronchitis for the past couple weeks. I am currently taking levaquin. prednisone last dose was today History of Present Illness The patient is a 32 year old male who presents to the Emergency Room with complaints of persistent chest tightness and cough for several weeks. The patient has been seen at his PCP on 2 occasions for his current symptoms. He states initially he was placed on a Z-Bhavesh and prednisone. He states his symptoms did not improve and therefore he went back and they placed him on Levaquin and another round of prednisone as well as a nebulizer. He has been using the nebulizer 2-3 times a day. He finished all his medications today. He also was taking Mucinex. The patient states that he still feels tight in the chest and has a cough. The patient is a non-smoker. The patient denies any fever or any other upper respiratory symptoms of headache, head congestion, sore throat. He denies any history of asthma. The patient denies any recent travel or surgeries. Review of Systems 10 system review was performed and was negative unless stated otherwise history of present illness. Past Medical/Surgical History Medical Problems: (1) Acid reflux (2) Back surgery (3) Head injury (4) Neck surgery Surgical Problems: (1) Hx of cholecystectomy Family History Blood clots FH: myocardial infarction Gallbladder disease Heart disease Social History Smoking Status: Never Smoker Alcohol Use: none Drug Use: none Marital Status: Housing Status: lives with family Occupation Status: employed Current/Historical Medications Scheduled Levofloxacin (Levaquin), 750 MG PO DAILY Prednisone (Prednisone), 40 MG PO DAILY Physical Exam Vital Signs Date Time Temp Pulse Resp B/P (MAP) Pulse Ox O2 Delivery O2 Flow Rate FiO2 06/11/18 14:50 98 20 136/85 96 Room Air 06/11/18 14:10 Room Air 96 06/11/18 13:34 37.1 108 18 149/94 97 Room Air Physical Exam PHYSICAL EXAM: Vital Signs were reviewed: Temperature 37.1, blood pressure 149/ 94, pulse 108, respiratory rate 18 reviewed Nurse's notes and agree. Oxygen saturation is 97 % on room air which is normal . GENERAL: 32-year-old male appears in no acute distress. MENTAL STATUS: Alert, oriented, coherent. EARS: Canals clear. TMs good light reflex, no erythema or fluid level noted. NOSE: Nasal mucosa with minimal erythema engorgement. PHARYNX: No erythema, no edema noted. No exudate noted. Airway is adequate. NECK: Supple, non-tender. No lymphadenopathy noted. LUNGS: Clear to auscultation without wheezes rales or rhonchi. CARDIAC: Regular rate and rhythm without murmur. SKIN: No rashes noted. Medical Decision & Procedures ER Provider Diagnostic Interpretation: TWO VIEW CHEST CLINICAL HISTORY: Cough. FINDINGS: PA and lateral chest radiographs are compared to study dated 04/25/2018. The cardiomediastinal silhouette is unremarkable. The lungs and pleural spaces are clear. There is no pneumothorax. The bony thorax appears intact. Cholecystectomy clips are noted in the upper abdomen. IMPRESSION: No active disease in the chest. Electronically signed by: Tee Shine M.D. 06/11/2018 2:44 PM Dictated Date/Time: 06/11/2018 2:43 PM Laboratory Results 06/11/18 14:00 Red Blood Count 5.08, Mean Corpuscular Volume 90.6, Mean Corpuscular Hemoglobin 33.3, Mean Corpuscular Hemoglobin Concent 36.7, Mean Platelet Volume 10.7, Neutrophils (%) (Auto) 86.4, Lymphocytes (%) (Auto) 9.0, Monocytes (%) (Auto) 2.6, Eosinophils (%) (Auto) 0.0, Basophils (%) (Auto) 0.1, Neutrophils # (Auto) 7.38, Lymphocytes # (Auto) 0.77, Monocytes # (Auto) 0.22, Eosinophils # (Auto) 0.00, Basophils # (Auto) 0.01 06/11/18 14:00 Test 06/11/18 14:00 06/11/18 14:08 White Blood Count 8.54 K/uL (4.8-10.8) Red Blood Count 5.08 M/uL (4.7-6.1) Hemoglobin 16.9 g/dL (14.0-18.0) Hematocrit 46.0 % (42-52) Mean Corpuscular Volume 90.6 fL (80-100) Mean Corpuscular Hemoglobin 33.3 pg (25-34) Mean Corpuscular Hemoglobin Concent 36.7 g/dl (32-36) Platelet Count 183 K/uL (130-400) Mean Platelet Volume 10.7 fL (7.4-10.4) Neutrophils (%) (Auto) 86.4 % Lymphocytes (%) (Auto) 9.0 % Monocytes (%) (Auto) 2.6 % Eosinophils (%) (Auto) 0.0 % Basophils (%) (Auto) 0.1 % Neutrophils # (Auto) 7.38 K/uL (1.4-6.5) Lymphocytes # (Auto) 0.77 K/uL (1.2-3.4) Monocytes # (Auto) 0.22 K/uL (0.11-0.59) Eosinophils # (Auto) 0.00 K/uL (0-0.5) Basophils # (Auto) 0.01 K/uL (0-0.2) RDW Standard Deviation 41.5 fL (36.4-46.3) RDW Coefficient of Variation 12.5 % (11.5-14.5) Immature Granulocyte % (Auto) 1.9 % Immature Granulocyte # (Auto) 0.16 K/uL (0.00-0.02) Prothrombin Time 11.1 SECONDS (9.0-12.0) Prothromb Time International Ratio 1.1 (0.9-1.1) Activated Partial Thromboplast Time 25.2 SECONDS (21.0-31.0) Partial Thromboplastin Ratio 1.0 D-Dimer < 190 ug/L FEU (0-500) Anion Gap 7.0 mmol/L (3-11) Est Creatinine Clear Calc Drug Dose 84.2 ml/min Estimated GFR () 93.5 Estimated GFR (Non- 80.7 BUN/Creatinine Ratio 13.3 (10-20) Calcium Level 8.7 mg/dl (8.5-10.1) Bedside Troponin I < 0.030 ng/ml (0-0.045) Medications Administered Medications (Trade) Dose Ordered Sig/Luis Route Start Time Stop Time Status Last Admin Dose Admin Methylprednisolone Sodium Succinate (Solu-Medrol IV) 125 mg NOW STAT IV 06/11/18 13:46 06/11/18 13:48 DC 06/11/18 14:08 125 MG ED Course The patient was evaluated. Patient's EMR medication list were reviewed. IV access was obtained. CBC and differential, coags, [id number] d-dimer were ordered. Chest x-ray was ordered interpreted by the radiologist as above without any acute findings. Labs are reviewed and were unremarkable. White count was normal. D-dimer was within normal range. The patient was informed of all findings. I discussed with the patient I feel that his symptoms are just lingering symptoms of the bronchitis. I will prescribe him some albuterol but do not feel it is necessary for any additional antibiotics. The patient is in agreement with treatment plan and was discharged home in stable condition. Medical Decision Differential diagnosis include pneumonia, bronchitis, viral URI [place] Drug Monitoring Program Search Results: patient reviewed within database Medication Reconcilliation Current Medication List: was personally reviewed by me Blood Pressure Screening Patient's blood pressure: Elevated blood pressure Blood pressure disposition: Elevated BP felt to be situational Impression Primary Impression: Bronchitis Departure Information Dispostion Home / Self-Care Condition GOOD Prescriptions Albuterol Hfa (VENTOLIN HFA) 200 Puffs/86743 Mcg Aers 2 PUFFS INH Q4, #1 INHALER Prov: Sabrina Khan PA-C 06/11/18 Referrals Goldie Montaño M.D. (PCP) Forms HOME CARE DOCUMENTATION FORM, IMPORTANT VISIT INFORMATION, WORK / SCHOOL INSTRUCTIONS Patient Instructions Bronchitis Acute, My [facility] [employer] Additional Instructions Use the albuterol inhaler 2 puffs every 4 hours as needed over the next 5-7 days. The cough may linger 1-2 weeks. If you experience any high fevers, shortness of breath follow with your family doctor for reevaluation.
[2018-06-11 15:31] VITALS: BP 135/84; PULSE 90; O2SAT 96
== END 2018-06-11 15:32 | disposition home or self-care (01) ==
LOC: C.EDB 13:33 → C.EDC 15:32
DX: J40 Bronchitis, not specified as acute or chronic (principal)